=== PATIENT | female | born 1930 | race Caucasian/White ===

== ENCOUNTER 2016-10-13 12:10 | Inpatient (IN) ==
[2016-10-13] MEDS ORDERED: ASPIRIN PO ONE (12:28)
--- NOTE | 2016-10-13 12:30 | EKG Report ---
Test Performed on : 10/13/2016 12:29:34 PM Test Reason : CHANGE Blood Pressure : / mmHG Vent. Rate : 142 BPM Atrial Rate : 094 BPM P-R Int : 000 ms QRS Dur : 100 ms QT Int : 322 ms P-R-T Axes : 000 -65 133 degrees QTc Int : 495 ms Supraventricular tachycardia. Left axis deviation Nonspecific ST and T wave abnormality Abnormal ECG No previous ECGs available Unconfirmed Result
[2016-10-13] MEDS ORDERED: CARDIZEM IV ONE (12:32)
[2016-10-13 12:42] LABS: MANUAL DIFF NEEDED? NO
[2016-10-13 12:47] LABS: BASO% 0.6 % (0.0-0.8); EOS# 0.02 X1000 (0.0-0.7); EOS% 0.3 % (0.0-10.0); HEMATOCRIT 41.2 % (37.0-47.0); HEMOGLOBIN 13.5 g/dL (12.0-16.0); IMM GRAN# 0.01 X1000 (0.0-0.04); IMM GRAN% 0.1 % (0.0-0.5); LYMPH# 1.44 X1000 (1.2-3.4); LYMPH% 18.4 % (20.5-51.1); MCH 30.7 PG (27-31); MCHC 32.8 g/dL (33-37); MCV 93.6 FL (81-99); MONO# 0.65 X1000 (0.11-0.59); MONO% 8.3 % (1.7-9.3); MPV 9.9 FL (7.4-10.4); NEUT% 72.3 % (42.2-75.2); PLT 215 X1000 (130-400)
[2016-10-13 12:59] LABS: PROTIME 13.5 Seconds (12.1-15.5)
[2016-10-13 13:06] LABS: AGAP 16; ALBUMIN 4.2 g/dL (3.5-5.0); ALKALINE PHOSPHATASE 34 U/L (32-104); BUN 14 mg/dL (8-22); CALCIUM 8.7 mg/dL (8.8-10.2); CHLORIDE 103 mmol/L (98-107); COSMO 280; GOT 48 U/L (10-30); GPT 55 U/L (10-36); POTASSIUM 3.9 mmol/L (3.5-5.1); SODIUM 140 mmol/L (136-145); TCO2 21 mmol/L (25-35); TOTAL PROTEIN 6.8 g/dL (6.3-8.3)
--- NOTE | 2016-10-13 13:37 | Diag Imaging Result Document ---
PROCEDURE NAME: CHEST-2 VIEWS - 10/13/2016 TWO VIEWS THE CHEST: FINDINGS: There is accentuated kyphosis. There is a calcified granuloma in the right middle lobe. The heart size is at the upper limits of normal. There is an apparent hiatal hernia. No acute pulmonary abnormalities are present. There are no previous studies. IMPRESSION: No evidence of acute disease. Top-normal heart size. Hiatal hernia.
--- NOTE | 2016-10-13 14:27 | Diag Imaging Result Document ---
PROCEDURE NAME: ANGIOGRAM/PULMONARY ARTERIES - 10/13/2016 CT OF THE CHEST WITH INTRAVENOUS CONTRAST: FINDINGS: There is at least one small filling defect in each of the left upper and lower lobes. No central emboli are demonstrated. There is patchy air trapping in both lungs. No focal consolidation is present. No abnormal fluid collections are present. There are some coronary calcifications. There is no evidence of significant adenopathy. No acute bony abnormalities are present. IMPRESSION: Small peripheral emboli in the left upper and lower lobes.
[2016-10-13] MEDS ORDERED: LOVENOX 1 MG/KG SUBQ ONE (14:30)
[2016-10-13] MEDS ORDERED: NS 1,000 ML ONE (14:36)
[2016-10-13] MEDS ORDERED: LOVENOX SUBQ ONE (14:45)
[2016-10-13] MEDS: CARDIZEM 100 MG/NS 100 MG/100 ML IVPB IV SCH (14:45)
--- NOTE | 2016-10-13 14:59 | PROVIDER DOCUMENTATION ---
This chart was entered by Dashawn Bradley Scribe, acting as scribe for Brian Loyola MD. HPI-Cardiac General - General Chief Complaint: Palpitations Stated Complaint: CHEST PAIN Time Seen by Provider: 10/13/16 12:28 Source: patient Allergies/Adverse Reactions: Patient Allergies Allergy/AdvReac Type Severity Reaction Status Date / Time codeine AdvReac HIVES Verified 10/13/16 12:19 Home Medications: Home Medication List Medication Instructions Recorded Confirmed Last Taken Type Acyclovir [Acyclovir] 400 mg PO DAILY 10/13/16 10/13/16 Unknown History Clopidogrel Bisulfate [Clopidogrel] 75 mg PO DAILY 10/13/16 10/13/16 Unknown History Ezetimibe [Zetia] 10 mg PO DAILY 10/13/16 10/13/16 Unknown History Fenofibrate [Fenofibrate] 160 mg PO DAILY 10/13/16 10/13/16 Unknown History Metoprolol Succinate [Metoprolol 25 mg PO DAILY 10/13/16 10/13/16 Unknown History Succinate] Simvastatin [Simvastatin] 40 mg PO DAILY 10/13/16 10/13/16 Unknown History - History of Present Illness-Cardiac Nature of Presenting Problem: 86 yo F presents to the ER with complaint of of racing heart and back pain x 1 week. Pt states she thought the racing heart would go away, but it did not. Pt saw her doctor earlier today and was told to come to the ER. Pt has no hx of similar symptoms. Location: reports: central Severity in ED: mild Onset/Duration: 1 week ago Timing: still present Palpitation Quality: fast/pounding heart beat History of arrythmia: reports: none Recent use of:: reports: no stimulants Associated Symptoms: reports: back pain Similar Symptoms Previously?: No Review of Systems - Adult - REVIEW OF SYSTEMS - ADULT Constitutional: denies: chills, fever Cardiovascular: reports: palpitations. denies: chest pain, irregular heart rate Respiratory: reports: shortness of breath. denies: cough Gastrointestinal: denies: abdominal pain, nausea, vomiting Musculoskeletal: reports: back pain. denies: neck pain All Other Systems: Reviewed and Negative Past History - Adult - PAST MEDICAL HISTORY-ADULT Review of Records: reports: Old Records Reviewed, Nursing Assessment Review, Medications Reviewed - IMMUNIZATION STATUS Childhood Immunizations: See Nurse Assessment Flu Vaccine: See Nurse Assessment Physical Exam-General - PHYSICAL EXAM-ADULT Initial Vital Signs Reviewed: Yes - CONSTITUTIONAL General Appearance: appears well, alert, no apparent distress - NECK Neck: non-tender, full range of motion, supple - RESPIRATORY Respiratory: chest non-tender, lungs clear, normal breath sounds - CARDIOVASCULAR Cardiovascular: tachycardia - MUSCULOSKELETAL Extremity: normal range of motion, non-tender, normal gait - SKIN Integumentary: normal color, normal turgor Progress - PLAN OF CARE/RESULTS Progress/Plan/Lab Results: Vital Signs - 8 hr 10/13/16 12:14 Temperature 98 F Pulse Rate 125 H Respiratory Rate 20 Blood Pressure 139/90 O2 Sat by Pulse Oximetry 99 Laboratory Results - last 24 hr 10/13/16 10/13/16 10/13/16 12:35 12:35 12:35 WBC 7.81 RBC 4.40 Hgb 13.5 Hct 41.2 MCV 93.6 MCH 30.7 MCHC 32.8 L RDW Std Deviation 13.5 Plt Count 215 MPV 9.9 Immature Gran % (Auto) 0.1 Neut % (Auto) 72.3 Lymph % (Auto) 18.4 L [place] % (Auto) 8.3 Eos % (Auto) 0.3 Baso % (Auto) 0.6 Immature Gran # (Auto) 0.01 Neut # (Auto) 5.64 Lymph # (Auto) 1.44 [place] # (Auto) 0.65 H Eos # (Auto) 0.02 Baso # (Auto) 0.05 PT INR D-Dimer Sodium 140 Potassium 3.9 Chloride 103 Carbon Dioxide 21 L Anion Gap 16 BUN 14 Creatinine 0.6 Estimated GFR/1.73 m2 > 60 BUN/Creatinine Ratio 23 Glucose 99 Calculated Osmolality 280 Calcium 8.7 L Total Bilirubin 0.20 AST 48 H ALT 55 H Alkaline Phosphatase 34 Creatine Kinase Troponin T Pcb-A-[id number] Pept 2900 H Total Protein 6.8 Albumin 4.2 Globulin 3.0 Albumin/Globulin Ratio 2.0 10/13/16 10/13/16 10/13/16 12:35 12:35 12:35 WBC RBC Hgb Hct MCV MCH MCHC RDW Std Deviation Plt Count MPV Immature Gran % (Auto) Neut % (Auto) Lymph % (Auto) [place] % (Auto) Eos % (Auto) Baso % (Auto) Immature Gran # (Auto) Neut # (Auto) Lymph # (Auto) [place] # (Auto) Eos # (Auto) Baso # (Auto) PT 13.5 INR 1.00 D-Dimer 0.60 H Sodium Potassium Chloride Carbon Dioxide Anion Gap BUN Creatinine Estimated GFR/1.73 m2 BUN/Creatinine Ratio Glucose Calculated Osmolality Calcium Total Bilirubin AST ALT Alkaline Phosphatase Creatine Kinase 115 Troponin T < 0.010 Afe-D-Lnhxfskzshi Pept Total Protein Albumin Globulin Albumin/Globulin Ratio Orders Category Date Time Status Cardiac Monitoring DIRECTED Care 10/13/16 12:26 Active IV Insertion ORDERED Care 10/13/16 12:32 Completed ANGIOGRAM/PULMONARY ARTERIES [CT] Stat Exams 10/13/16 13:17 Draft CHEST-2 VIEWS [RAD] Stat Exams 10/13/16 12:26 Completed CBC WITH DIFF [HEME] Stat Lab 10/13/16 12:35 Completed CK PROFILE [SP CHEM] Stat Lab 10/13/16 12:35 Completed COMPREHENSIVE METABOLIC PANEL [CHEM] Stat Lab 10/13/16 12:[address] Com[address] D-DIMER PL [COAG] Stat Lab 10/13/16 12:35 Completed PRO B-NATRIURETIC PEPTIDE Stat Lab 10/13/16 12:35 Completed PROTIME WITH INR PL [COAG] Stat Lab 10/13/16 12:35 Completed TROPONIN T Stat Lab 10/13/16 12:35 Completed 0.9% Sodium Chloride Inj [Ns] 1,000 ml Med 10/13/16 14:36 Discontinued .ROUTE As Directed Aspirin Med 10/13/16 12:28 Discontinued 325 mg PO NOW ONE Diltiazem 100 mg/Ns [Cardizem 100 mg/Ns] Med 10/13/16 14:30 Active 100 mg in 100 ml IV 5 mg/hr Diltiazem [Cardizem] Med 10/13/16 12:32 Discontinued 10 mg IV NOW ONE Enoxaparin 1 mg/kg [Lovenox 1 mg/kg] Med 10/13/16 14:30 Discontinued 1 each SUBQ NOW ONE Enoxaparin [Lovenox] Med 10/13/16 14:45 Discontinued 70 mg SUBQ NOW ONE O2 Per Protocol Stat Oth 10/13/16 12:26 Active Result Diagrams: 10/13/16 12:35 10/13/16 12:35 - EKG 1 Time of EKG reading by physician:: 12:34 EKG Read and Signed by:: Brian Loyola EKG Interpretation (*Must complete 3 of following elements*): Abnormal Rate: 142 Rhythm: supraventricular tachycardia [place]: left QRS: normal [place] Interval: normal ST Wave: non-specific ST changes (non specific wave abnormality) Comments: abnormal ekg 2 Time of EKG reading by physician:: 13:28 EKG Read and Signed by:: Brian Loyola EKG Interpretation (*Must complete 3 of following elements*): Abnormal Rate: 71 Rhythm: NSR [place]: normal QRS: normal [place] Interval: normal ST Wave: non-specific ST changes (ST and T wave abnormality, consider anterior ischemia) Comments: abnormal ekg - XRAY 1 XRAY Study: Chest Impression: Normal XRAY Interpretation: no evidence of acute disease - CT/MRI 1 CT Study: Angiogram Impression: Abnormal CT Results: small pe; JADA and LLL - CONSULTS/PCP/HOSPITALIST Notification #1 *Consult/PCP/Hospitalist*: Hospitalist- Dr. Dejesus Time Discussed: 14:28 Reason/Comments: poss admit Consult Disposition: Admit (to [facility]- Dr. Paulson) Departure - Departure Time of Disposition Decision: 14:49 DIAGNOSIS: Pulmonary embolism Qualifiers: Pulmonary embolism type: other Chronicity: unspecified Acute cor pulmonale presence: without acute cor pulmonale Qualified Code(s): I26.99 - Other pulmonary embolism without acute cor pulmonale Disposition: ADMITTED INPATIENT 09 Certified Medical Emergency: Emergent Condition: Stable Referrals and Follow-Ups: Ida Nieto MD [Primary Care Provider] - - Critical Care Note This patient required my direct & personal management of CC.: No This chart was documented by the indicated scribe, (Dashawn Bradley Scribe) and accurately reflects the services I performed and decisions made by , Brian Loyola MD, as attested by the provider's signature.
--- NOTE | 2016-10-13 16:06 | EKG Report ---
Test Performed on : 10/13/2016 3:04:25 PM Test Reason : IRREG HR Blood Pressure : / mmHG Vent. Rate : 140 BPM Atrial Rate : 068 BPM P-R Int : 000 ms QRS Dur : 088 ms QT Int : 294 ms P-R-T Axes : 000 -62 135 degrees QTc Int : 448 ms Supraventricular tachycardia. Left axis deviation Nonspecific ST and T wave abnormality Abnormal ECG No previous ECGs available Unconfirmed Result
[2016-10-13] MEDS ORDERED: TYLENOL PO PRN (17:02)
[2016-10-13] MEDS ORDERED: ZOFRAN IV PRN (17:02)
--- NOTE | 2016-10-13 18:24 | HISTORY AND PHYSICAL ---
PRIMARY CARE PHYSICIAN: Dr. López. CHIEF COMPLAINT: Racing heart and some back pain over the past week that has progressively worsened. HISTORY OF PRESENTING ILLNESS: This is an 86-year-old, female who came to [facility] ER after she saw her primary care physician today and was told to come to the ER after she was found to have a racing heart and back pain for the past week. When she arrived to the emergency room, she was noted to have a heart rate of 125. EKG initially showed SVT. Laboratory data showed a D-dimer of 0.6, with a proBNP of 2900. We did a pulmonary arteriogram that showed a small peripheral emboli in the left upper and lower lobes. She was given Cardizem 10 mg IV x1 in the emergency room and aspirin 325 mg x1 and Lovenox 1 mg/kg subcu x1 in the emergency room her heart rate did not change much and upon looking at her teletypesetter monitor, it appeared that her rhythm has changed, so we obtained another EKG that showed atrial fibrillation with RVR at 105 at that time, so, she is being started on a Cardizem drip. O2 is in place and she will be transferred to [facility] for further evaluation and treatment. PAST MEDICAL HISTORY: Hypercholesterolemia, GERD and chronic back pain. PAST SURGICAL HISTORY: Left eye surgery. FAMILY HISTORY: Noncontributory. SOCIAL HISTORY: She currently lives alone. Denies any tobacco, alcohol, or illicit drug use. ALLERGIES: Codeine. HOME MEDICATIONS: She takes acyclovir 400 mg p.o. daily. Plavix 75 mg p.o. daily. Zetia 10 mg p.o. daily, fenofibrate 160 p.o. daily. Metoprolol 25 mg p.o. daily and simvastatin 40 mg p.o. daily. LABORATORY DATA: Showed a white blood cell count of 7.8, hemoglobin 13.5, hematocrit 41.2, platelets 215. PT and INR of 13.5 and 1.00 with a D-dimer of 0.60. Sodium of 140, potassium 3.9, chloride 103, CO2 of 21, BUN of 14, creatinine 0.6, glucose of 99. AST of 48 with an ALT of 55. Alkaline phosphatase was normal at 34. Creatine kinase of 115, troponin less than 0.010. ProBNP of 2900. Chest x-ray showed no evidence of an acute disease. EKG on arrival showed SVT at 142. Repeat EKG showed atrial fibrillation with RVR at 105. Pulmonary arteriogram showed small peripheral emboli in the left upper and lower lobes. REVIEW OF SYSTEMS: She denied any fever, chills, blurred vision, dizziness. She denied chest pain, but she was positive for palpitations and some back pain. Denied any shortness of breath. Denied any constipation, diarrhea, abdominal pain, nausea, vomiting, or burning or hurting with urination. PHYSICAL EXAMINATION: VITAL SIGNS: On arrival, she had a temperature of 98, a pulse of 125, respirations 20, blood pressure 139/90, saturating 99% on room air. She was placed on some supplemental O2, and is now saturating 99-100% on 2 L. GENERAL: This is an 86-year-old, female, lying in the bed, and answers questions appropriately. HEENT: Normocephalic, atraumatic. Pupils are equal, round and reactive to light. The extraocular movements are intact. The oropharynx and nares are clear. NECK: Supple. LUNGS: Clear to auscultation bilaterally with equal lung expansion and chest wall movement. HEART: With regular rate and rhythm. No murmurs, rubs, or gallops. ABDOMEN: Soft, nontender, nondistended. Bowel sounds are present x4 quadrants. EXTREMITIES: No clubbing, cyanosis or edema. NEUROLOGICAL: The cranial nerves 2-12 are grossly intact. ASSESSMENT: 1. Left upper and left lower lobe pulmonary emboli. 2. Supraventricular tachycardia. 3. Atrial fibrillation with rapid ventricular response. 4. Hypertension. PLAN: She will be admitted to [facility] unit. Placed on telemetry. Healthy heart diet. We will consult Cardiology. We will do a hypercoagulable workup. Place on Lovenox 1 mg/kg subcutaneous q.12. Continue her home medications. Strict bed rest. The patient will need an echocardiogram, but will hold off ordering this until cardiology sees her and she converts back to normal sinus rhythm in order to get some good pictures of her heart. All admission orders have been discussed with the patient and family and they verbalized understanding. Does not have a living will and is a full code. Dictated by AVTAR Mckeon for Rai Baig MD cc: AVTAR Mckeon MD Thomas E. Lockard, DO MTDD
[2016-10-13] MEDS: PROTONIX IV SCH (20:59)
[2016-10-13] MEDS ORDERED: KLONOPIN PO PRN (21:52)
[2016-10-13] MEDS ORDERED: ANTIVERT PO PRN (21:52)
[2016-10-13] MEDS: ZOCOR PO SCH (22:40)
[2016-10-13] MEDS: ULTRAM PO PRN (22:40)
[2016-10-13] MEDS: ZOVIRAX PO SCH (22:41)
[2016-10-14] MEDS ORDERED: LOVENOX SUBQ SCH (03:00)
[2016-10-14] MEDS: CARDIZEM 100 MG/NS 100 MG/100 ML IVPB IV SCH ×2 (03:57→12:16)
--- NOTE | 2016-10-14 04:14 | EKG Report ---
Test Performed on : 10/13/2016 1:28:13 PM Test Reason : rhythm change Blood Pressure : / mmHG Vent. Rate : 071 BPM Atrial Rate : 071 BPM P-R Int : 188 ms QRS Dur : 090 ms QT Int : 390 ms P-R-T Axes : 071 -16 084 degrees QTc Int : 423 ms Normal sinus rhythm. ST \T\ T wave abnormality, consider anterior ischemia Abnormal ECG When compared with ECG of 13-OCT-2016 12:29, (Unconfirmed) Vent. rate has decreased BY 71 BPM Nonspecific T wave abnormality now evident in Inferior leads Unconfirmed Result
[2016-10-14 05:36] LABS: MANUAL DIFF NEEDED? NO
[2016-10-14 05:42] LABS: BASO% 1.2 % (0.0-0.8); EOS# 0.03 X1000 (0.0-0.7); EOS% 0.6 % (0.0-10.0); HEMATOCRIT 37.8 % (37.0-47.0); HEMOGLOBIN 12.5 g/dL (12.0-16.0); LYMPH# 1.23 X1000 (1.2-3.4); LYMPH% 24.9 % (20.5-51.1); MCH 31.3 PG (27-31); MCHC 33.1 g/dL (33-37); MCV 94.5 FL (81-99); MONO# 0.49 X1000 (0.11-0.59); MONO% 9.9 % (1.7-9.3); MPV 9.9 FL (7.4-10.4); NEUT% 63.4 % (42.2-75.2); PLT 188 X1000 (130-400)
[2016-10-14 06:00] LABS: AGAP 10; ALBUMIN 3.6 g/dL (3.5-5.0); ALKALINE PHOSPHATASE 27 U/L (32-104); BUN 12 mg/dL (8-22); CALCIUM 8.1 mg/dL (8.8-10.2); CHLORIDE 109 mmol/L (98-107); COSMO 283; GOT 34 U/L (10-30); GPT 42 U/L (10-36); POTASSIUM 3.8 mmol/L (3.5-5.1); SODIUM 142 mmol/L (136-145); TCO2 23 mmol/L (25-35); TOTAL PROTEIN 5.9 g/dL (6.3-8.3)
[2016-10-14] MEDS: ZOVIRAX PO SCH ×2 (08:30→19:54)
[2016-10-14] MEDS: ZETIA PO SCH (08:31)
[2016-10-14] MEDS: LOFIBRA PO SCH (08:31)
[2016-10-14] MEDS ORDERED: ZOCOR PO SCH (09:00)
[2016-10-14] MEDS ORDERED: TOPROL XL PO SCH (09:00)
[2016-10-14] MEDS ORDERED: ZOVIRAX PO SCH (09:00)
[2016-10-14] MEDS ORDERED: PLAVIX PO SCH (09:00)
--- NOTE | 2016-10-14 11:04 | CONSULTATION ---
DATE OF CONSULTATION: 10/14/2016 IMPRESSION: 1. Atrial flutter with rapid ventricular rate of at least several days' duration by history with associated tachy palpitations. 2. Right posterior back discomfort. 3. Small distal pulmonary emboli reported on chest CT angiography, reportedly in the left upper and left lower lobes. 4. Atherosclerotic carotid disease. 5. Hyperlipidemia. 6. Scoliosis with associated chronic back discomfort. 7. Gastroesophageal reflux disease. RECOMMENDATIONS: 1. Continue intravenous Cardizem until heart rate adequately controlled. 2. Augment beta-estelita to facilitate getting off intravenous Cardizem and controlling heart rate. 3. Anticoagulation. Would transition to Eliquis and not resume Plavix. 4. Followup echocardiography. 5. If unable to achieve rate control without intravenous Cardizem, as beta-estelita is increased will consider going forward with NORM cardioversion. 6. The rationale for anticoagulation for thromboembolic risk protection and the possible need for NORM cardioversion was discussed at length with the patient and her daughter. HISTORY: This 86-year-old white female with past history of hyperlipidemia, atherosclerotic carotid disease, and gastroesophageal reflux as well as chronic back discomfort related to scoliosis was admitted through the emergency room for further management of SVT that ultimately has proven to be atrial flutter. She relates recent problems with right posterior chest discomfort for the last 4 days or so. She has had some tachy palpitations. There has been no other chest discomfort. Her right posterior discomfort is described as a "hurting to the bone." She is not convinced that it is worse with deep breath or cough. There has been no dyspnea. She has not had any recent travel. There has been no lower extremity swelling. PAST MEDICAL HISTORY: 1. Atherosclerotic carotid disease for which patient was started on Plavix. 2. Hyperlipidemia. 3. Gastroesophageal reflux. 4. Chronic back pain which is reportedly due to scoliosis. 5. 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 6. She is allergic or intolerant to codeine. MEDICATIONS PRIOR TO ADMISSION: As listed. SOCIAL HISTORY: She is a . She does not smoke or use alcohol. FAMILY HISTORY: Negative for premature coronary artery disease. REVIEW OF SYSTEMS: Pulmonary: Negative. Gastrointestinal: With gastroesophageal reflux but otherwise negative. Constitutional: Negative. Remainder of review of systems negative/noncontributory with 14 total systems reviewed. PHYSICAL EXAMINATION: General: Pleasant elderly female in no distress. Vital signs: As recorded are stable. HEENT: Extraocular movements appear intact. Mucous membranes are moist. Neck: Supple without jugular venous distention. There are no carotid bruits. Chest: Clear to auscultation. Cardiac: Exam reveals an irregular rate and rhythm without appreciable murmur or gallop. Abdomen: Soft, nontender. Bowel sounds are normal. Extremities: Without edema. Neurologic: Exam reveals her to be alert and fully oriented. Speech is fluent. She moves all 4 extremities equally well. Skin: Warm and dry. Psychiatric: Exam reveals her mood to be appropriate. EKG: Initial EKG demonstrates supraventricular tachycardia at 144 beats per minute, left anterior fascicular block, and nonspecific ST-T abnormality. Followup ECG: Heart rate is controlled, discloses atrial flutter with variable rate response. cc: David Padilla MD
[2016-10-14] MEDS ORDERED: MIRALAX PO ONE (11:29)
--- NOTE | 2016-10-14 14:29 | PROGRESS NOTE ---
DATE: 10/14/2016 SUBJECTIVE: Patient has no focal complaints. OBJECTIVE: Blood pressure 115/61, heart rate of 84, respiratory rate 18, temperature 97.9 degrees, 100% on 2 L.Cardiovascular: Regular rate and rhythm. Pulmonary: Bilateral breath sounds. Clear to auscultation. GI: Soft, nontender, nondistended. Bowel sounds are positive. LABORATORY DATA: White count of 4, hemoglobin and hematocrit 12 and 37, platelets of 188,000. CMP looked okay. AST and ALT are mildly elevated at 34 and 42. PROBLEM LIST: 1. PE, very small PE. She is getting a hypercoagulable workup. Clinically she appears very stable. She has been very stable so I am going to transition her to [facility] and we will follow. 2. A-flutter with variable block and RVR. She is on Cardizem and Lopressor. Dr. Padilla has been consulted. Echo is pending. Plan for NORM with cardioversion on Monday if she does not cardiovert on her own. We will continue to monitor closely. 3. Disposition pending her clinical course. 4. Elevated liver enzymes. I will monitor and do hepatitis screen. cc: Andrew Bear MD
--- NOTE | 2016-10-14 16:16 | ECHO REPORT ---
ORDER DATE: 10/14/2016 ECHOCARDIOGRAPHIC MEASUREMENTS: 1. Interventricular septum 1.4 2. Left ventricular posterior wall 1.5 cm. 3. Diastolic diameter 4.9. 4. Left atrium 4.7. 5. Aorta 2.7. FINDINGS: 1. Aortic valve leaflets were trileaflet, mildly sclerosed, opening normally. 2. Pulmonic valve was normal. 3. Tricuspid valve was normal. 4. Mitral valve was normal. 5. There is left atrial enlargement. 6. Normal left ventricular cavity size, mild left ventricular hypertrophy. Estimated ejection fraction of 65%. 7. Doppler studies revealed mild mitral regurgitation, mild tricuspid regurgitation. Peak velocity across the tricuspid valve was 2.7 meters/second. Pulmonary artery systolic pressure 40 mmHg Peak. 8. Peak velocity across the aortic valve less than 2 meters/second by Doppler studies. There is no aortic stenosis. There is mild aortic regurgitation. 9. Thee is no pericardial effusion or obvious intracardiac mass or thrombus. cc: MD Andrew Perez MD
--- NOTE | 2016-10-14 17:22 | Extremity Venous Study ---
PROCEDURE NAME: Venous U/S Bilateral Legs - 10/14/2016 STUDY PERFORMED: Bilateral lower extremity venous ultrasound. INDICATIONS: Pulmonary embolus. HISTOLOGY TECHNICIAN: Raiza FINDINGS: All deep and superficial veins were visualized in bilateral lower extremities. All veins appeared compressible with forward flow and no obvious intraluminal thrombus. There was some reflux noted with Valsalva in the right popliteal vein. SUMMARY: No definitive deep or superficial venous thrombosis seen in the bilateral lower extremities on this exam. cc: MD Andrew Long MD
[2016-10-14] MEDS: ELIQUIS PO SCH (19:52)
[2016-10-14] MEDS: ZOCOR PO SCH (19:53)
[2016-10-14] MEDS: LOPRESSOR PO SCH (19:53)
[2016-10-14] MEDS: ULTRAM PO PRN (19:53)
[2016-10-14] MEDS: PROTONIX IV SCH (19:55)
[2016-10-14] MEDS: SODIUM CHLORIDE 0.9% INJ SCH (19:55)
[2016-10-15] MEDS: LOPRESSOR PO SCH ×3 (02:23→21:36)
[2016-10-15] MEDS: ZOCOR PO SCH (02:23)
[2016-10-15] MEDS: ZOVIRAX PO SCH ×3 (02:24→21:36)
[2016-10-15] MEDS: ELIQUIS PO SCH ×3 (02:24→21:35)
[2016-10-15] MEDS: PROTONIX IV SCH ×2 (02:24→21:35)
[2016-10-15] MEDS: ULTRAM PO PRN ×2 (04:45→09:36)
[2016-10-15] MEDS: CARDIZEM 100 MG/NS 100 MG/100 ML IVPB IV SCH ×3 (04:50→18:49)
[2016-10-15 08:31] LABS: HEMATOCRIT 39.2 % (37.0-47.0); HEMOGLOBIN 13.1 g/dL (12.0-16.0); MCH 31.5 PG (27-31); MCHC 33.4 g/dL (33-37); MCV 94.2 FL (81-99); RBC 4.16 XMIL (4.2-5.4)
[2016-10-15] MEDS: MIRALAX PO SCH (08:42)
[2016-10-15] MEDS: LOFIBRA PO SCH (08:44)
[2016-10-15] MEDS: ZETIA PO SCH (08:44)
[2016-10-15 09:08] LABS: AGAP 10; ALBUMIN 3.9 g/dL (3.5-5.0); ALKALINE PHOSPHATASE 30 U/L (32-104); BUN 10 mg/dL (8-22); CALCIUM 8.7 mg/dL (8.8-10.2); CHLORIDE 109 mmol/L (98-107); COSMO 282; DIRECT BILIRUBIN < 0.20 mg/dL (0.00-0.20); GOT 34 U/L (10-30); GPT 42 U/L (10-36); MAGNESIUM 2.1 mg/dL (1.5-2.7); POTASSIUM 4.2 mmol/L (3.5-5.1); SODIUM 142 mmol/L (136-145); TCO2 23 mmol/L (25-35); TOTAL BILIRUBIN 0.36 mg/dL (0.20-1.00); TOTAL PROTEIN 6.3 g/dL (6.3-8.3)
--- NOTE | 2016-10-15 10:52 | PROGRESS NOTE ---
DATE: 10/15/2016 CHIEF COMPLAINT: Back pain, irregular heartbeat and shortness of breath. SUBJECTIVE: Ms. Loza is still having some back pain. It is not as bad, seems to get better when she is sitting upright and pushing her buttocks back against the bed. It is nonpleuritic. It does not seem to get worse by touch. Her palpitations appear to have lessened some. She is still in atrial fibrillation, and the rate is still fluctuating with a maximum that reaches 115. OBJECTIVE: Blood pressure today is 125/74, temperature 97.8, pulse 99, respirations 17. She is awake, elderly, in no distress. HEENT: Unremarkable. Chest: Fairly clear to auscultation and percussion. Heart sounds are irregularly irregular. I do not hear a gallop or murmur. Abdomen: Nontender, soft. No masses. No hepatomegaly. Extremities showed good pulses. No peripheral edema. Neurologic: She follows commands and moves all 4 extremities. DIAGNOSTIC DATA: Blood work today showed sodium 142, potassium 4.2, BUN is 10, creatinine 0.7. Her ProBNP was 2900 on admission. Hemoglobin today is 13.1. IMPRESSION: 1. The patient is with atrial fibrillation with rapid response. 2. Small pulmonary embolism noted on a CT scan of the chest. Of note, a venous ultrasound has shown no evidence of clots. In addition, a 2D echocardiogram done on 10/14/2016 showed normal left ventricular ejection fraction. 3. Hyperlipidemia. 4. History of chronic back pain, scoliosis. 5. History of bilateral knee osteoarthritis. 6. She also has history of carotid artery disease. RECOMMENDATIONS: At this point in time, given her normal ejection fraction, I will add a low dose of diltiazem, and we will also add some digoxin to optimize the control of her heart rate. She is already on beta blockers. I would continue anticoagulation as you are doing. The daughter was concerned about the multiple drugs that she is taking for management of her hyperlipidemia, and I agree with her that it would be reasonable to stop Zocor, fenofibrate and Zetia and put her on Lipitor 80 mg daily and see what kind of lipid profile can be accomplished that way and then add medications as needed thereafter. We will make the changes. We will follow her along. Thank you for the opportunity to participate in her evaluation. Best regards. cc: Ilir Calvillo MD
[2016-10-15] MEDS: LANOXIN PO SCH ×3 (12:44→22:00)
--- NOTE | 2016-10-15 13:18 | PROGRESS NOTE ---
DATE: 10/15/2016 SUBJECTIVE: Patient has no focal complaints except for back pain. OBJECTIVE: Blood pressure 108/84, heart rate of 101, respiratory rate 20, temperature 98.2 degrees, 100% on 2 L.Cardiovascular: Irregularly irregular. Pulmonary: Bilateral breath sounds. Diminished at bases. GI: Was soft, nontender, nondistended. Bowel sounds are positive. Extremities: No clubbing or cyanosis. Lymphatics: No peripheral edema. LABORATORY DATA: CBC unremarkable. Normal white count. Normal H and H. Electrolytes looked good. Potassium 4.2, mag 2.1. Creatinine 0.7, AST and ALT are still up a little bit of 34 and 42, kind of monitor those. PROBLEM LIST: 1. Atrial fibrillation or A-flutter with rapid ventricular response. We have not been able to wean her off the Cardizem drip. She had gone up on the Lopressor yesterday. Dr. Calvillo has seen her and added digoxin load. Hopefully that will aid in converting. She is anticoagulated now. I have switched her to Eliquis which I will discuss with Dr. Calvillo. We may have to put her back on Lovenox if we anticipate NORM. I just do not want that to interfere with possible NORM on Monday. 2. PE. She is being anticoagulated. DVT workup was negative by report, a preliminary report. Hypercoagulable workup is pending. 3. Elevated liver enzymes. I think next step will be a right upper quadrant although she is not symptomatic. Disposition: I am still waiting on the final resolution of her A-flutter, A-fib. We will continue to follow. cc: Andrew Bear MD
[2016-10-15] MEDS: CARDIZEM PO SCH ×2 (14:45→21:35)
[2016-10-15] MEDS ORDERED: DULCOLAX PO ONE (21:25)
[2016-10-15] MEDS: SODIUM CHLORIDE 0.9% INJ SCH (21:35)
[2016-10-15] MEDS: LIPITOR PO SCH (21:36)
[2016-10-15] MEDS ORDERED: DULCOLAX PR ONE (21:54)
[2016-10-16] MEDS: LANOXIN PO SCH ×2 (01:23→08:13)
[2016-10-16] MEDS: CARDIZEM PO SCH ×4 (03:58→20:27)
[2016-10-16] MEDS: NORCO-5 PO PRN ×3 (03:58→20:36)
[2016-10-16] MEDS: ZOFRAN IV PRN (04:12)
[2016-10-16 05:21] LABS: HEMATOCRIT 37.7 % (37.0-47.0); HEMOGLOBIN 12.5 g/dL (12.0-16.0); MCH 31.6 PG (27-31); MCHC 33.2 g/dL (33-37); MCV 95.4 FL (81-99); MPV 9.8 FL (7.4-10.4); RBC 3.95 XMIL (4.2-5.4)
[2016-10-16 05:40] LABS: AGAP 12; BUN 14 mg/dL (8-22); CALCIUM 8.9 mg/dL (8.8-10.2); CHLORIDE 104 mmol/L (98-107); COSMO 284; POTASSIUM 4.1 mmol/L (3.5-5.1); SODIUM 142 mmol/L (136-145); TCO2 26 mmol/L (25-35)
[2016-10-16] MEDS: LOPRESSOR PO SCH ×2 (08:13→20:27)
[2016-10-16] MEDS: ELIQUIS PO SCH ×2 (08:13→20:27)
[2016-10-16] MEDS: MIRALAX PO SCH ×2 (08:13→20:26)
[2016-10-16] MEDS: ZOVIRAX PO SCH ×2 (08:13→20:27)
[2016-10-16] MEDS: CARDIZEM 100 MG/NS 100 MG/100 ML IVPB IV SCH (09:14)
--- NOTE | 2016-10-16 14:35 | PROGRESS NOTE ---
DATE: 10/16/2016 CHIEF COMPLAINT: Palpitations, shortness of breath, back pain, irregular heartbeat. SUBJECTIVE: Ms. Loza is feeling better today. Her heart rate is much better controlled. She is not having any palpitations. She does have some pain in the right side of her back, to the right side of the spine. It is nonpleuritic. OBJECTIVE: Blood pressure is 105/51, temperature 98.4, pulse 65, respirations 20. She is awake, alert, oriented, in no distress. HEENT is unremarkable. Chest: Clear to auscultation and percussion. Heart sounds are almost regular at this time. No gallop or murmur is noted. Abdomen: Nontender, soft. No masses or hepatomegaly. Extremities showed good pulses, no edema. Neurologic: She moves all 4 extremities. DIAGNOSTIC DATA: A 12-lead EKG done today shows what appears to be a junctional rhythm with a good heart rate of 65 beats per minute. IMPRESSION: 1. The patient presented with paroxysmal atrial fibrillation. This is better controlled on present therapy. 2. Hyperlipidemia. 3. Chronic back pain. 4. History of pulmonary embolism. 5. History of arthritis of the knees. RECOMMENDATIONS: At this point in time, we will continue present medicines as ordered including a low dose of digoxin, diltiazem and metoprolol. We will continue to follow her. She may proceed with cardioversion in the morning. Further advice will be forthcoming. cc: Ilir Calvillo MD
--- NOTE | 2016-10-16 16:43 | PROGRESS NOTE ---
DATE: 10/16/2016 SUBJECTIVE: Patient has no focal complaints. OBJECTIVE: Vital signs: Blood pressure 105/51, heart rate 65, respiratory rate 20, temperature 98.4 degrees. 98% on 2 L. Cardiovascular: Regular rate and rhythm. Pulmonary: Bilateral breath sounds, clear to auscultation. GI: Soft, nontender, nondistended. Bowel sounds are positive. LABORATORY DATA: White count 6.6, hemoglobin and hematocrit 12 and 37, platelets 198,000. Basic was normal. PROBLEM LIST: 1. A-flutter with rapid ventricular response. She is on digitalis, Cardizem and Lopressor and controlled. She is anticoagulated. Cardiology is following. 2. Small pulmonary emboli. Again. We are continuing anticoagulation. 3. Elevated liver enzymes. We will follow up on her ultrasound and follow. DISPOSITION: Possibly home tomorrow if rate controlled. cc: Andrew Bear MD
--- NOTE | 2016-10-16 18:31 | Diag Imaging Result Document ---
PROCEDURE NAME: US ABDOMEN-COMPLETE - 10/16/2016 ULTRASOUND ABDOMEN: FINDINGS: The gallbladder is mildly distended. There are multiple mobile gallstones in the gallbladder. The gallbladder laureano do not appear abnormally thickened, and there is no pericholecystic fluid identified. The technologist reports negative sonographic Cerda's sign. The common bile duct is normal caliber at 2 mm. There are no abnormalities of the liver or spleen identified. There is no ascites seen. The bilateral kidneys are unremarkable. Visualized portions of the pancreas are unremarkable. Visualized portions of abdominal aorta and IVC appear normal caliber. IMPRESSION: Mildly distended gallbladder. Multiple gallstones in the gallbladder. No abnormal gallbladder wall thickening or pericholecystic fluid seen. Normal common bile duct at 2 mm.
[2016-10-16] MEDS ORDERED: DULCOLAX PR ONE (19:54)
[2016-10-16] MEDS ORDERED: DULCOLAX PO ONE (19:54)
[2016-10-16] MEDS: LIPITOR PO SCH (20:26)
[2016-10-17] MEDS: CARDIZEM PO SCH ×2 (04:00→08:34)
[2016-10-17 05:26] LABS: HEMATOCRIT 40.4 % (37.0-47.0); HEMOGLOBIN 13.2 g/dL (12.0-16.0); MCH 31.5 PG (27-31); MCHC 32.7 g/dL (33-37); MCV 96.4 FL (81-99); MPV 10.1 FL (7.4-10.4); RBC 4.19 XMIL (4.2-5.4)
[2016-10-17 05:40] LABS: AGAP 11; BUN 15 mg/dL (8-22); CALCIUM 8.7 mg/dL (8.8-10.2); CHLORIDE 104 mmol/L (98-107); COSMO 286; MAGNESIUM 1.9 mg/dL (1.5-2.7); POTASSIUM 3.9 mmol/L (3.5-5.1); SODIUM 143 mmol/L (136-145); TCO2 28 mmol/L (25-35)
--- NOTE | 2016-10-17 06:12 | EKG Report ---
Test Performed on : 10/16/2016 05:52:49 AM Test Reason : atrial fibrillation Blood Pressure : / mmHG Vent. Rate : 065 BPM Atrial Rate : 267 BPM P-R Int : 000 ms QRS Dur : 102 ms QT Int : 408 ms P-R-T Axes : 000 -27 138 degrees QTc Int : [address] \T\ T wave abnormality, consider anterolateral ischemia Abnormal ECG When compared with ECG of 14-OCT-2016 01:10, Junctional rhythm. has replaced Sinus rhythm. Vent. rate has decreased BY 75 BPM Criteria for Septal infarct are no longer present ST no longer depressed in Inferior leads Nonspecific T wave abnormality has replaced inverted T waves in Inferior leads Confirmed by Kat SHARMA, Jose A Christie ([id number]) on 10/17/2016 7:31:49 AM
[2016-10-17] MEDS: NORCO-5 PO PRN ×2 (06:26→23:23)
[2016-10-17] MEDS: PRILOSEC PO SCH (06:26)
[2016-10-17] MEDS: ZOFRAN IV PRN (06:26)
[2016-10-17] MEDS: ZOVIRAX PO SCH ×2 (08:34→21:38)
[2016-10-17] MEDS: ELIQUIS PO SCH ×2 (08:34→21:39)
[2016-10-17] MEDS: LANOXIN PO SCH (08:35)
[2016-10-17] MEDS: LOPRESSOR PO SCH ×2 (08:38→21:39)
[2016-10-17] MEDS: MIRALAX PO SCH ×2 (08:38→21:38)
--- NOTE | 2016-10-17 09:01 | PROGRESS NOTE ---
DATE: 10/17/2016 SUBJECTIVE: Ms Loza was admitted on 10/13/2016. Admitted with racing heart and back pain that progressively worsened. She saw her primary care doctor and was told to come to the ER. Had a racing heart and back pain. EKG initially showed SVT. Heart rate was 125. D-dimer was 0.6. ProBNP was 2,900. Did a pulmonary arteriogram which showed small peripheral emboli in the left upper and lower lobe. She was given Cardizem in the emergency room and admitted for left upper and left lower lobe emboli, supraventricular tachycardia, atrial fibrillation with rapid ventricular response, and hypertension. OBJECTIVE: General: Exam today, she is comfortable, sitting up. She says she is ready to go home. Vital signs: Temp 98.1 degrees, pulse 66, respirations 17, blood pressure 122/57. HEENT: Pupils are equal, round. Lungs: Clear in all lung guevara. Cardiovascular: Regular rhythm and rate without murmur or S3. Intake and output: Urine output was a 1000 mL. Note, her monitor shows she is still in atrial fibrillation, rate running 110-120 and I think she is scheduled for a cardioversion. ASSESSMENT AND PLAN: 1. Atrial flutter/atrial fibrillation with rapid ventricular response. Is on digitalis, Cardizem, Lopressor. Rate is somewhat controlled. She is anticoagulated. Plan I think is the cardiovert and I think that is possibly today. 2. Small pulmonary emboli. She is on anticoagulation and we have her on Eliquis 5 mg b.i.d. 3. In looking overall her orders I do not see any other changes. I think the plan is to proceed with cardioversion this morning. In looking over lab, hematocrit is 40. Electrolytes look good. Magnesium is 1.9, creatinine 0.8. cc: Bartolome Tan MD
[2016-10-17 09:19] LABS: HEPATITIS PROFILE ACUTE SEE COMMENTS
[2016-10-17] MEDS ORDERED: XYLOCAINE 2% VISCOUS ONE (10:07)
[2016-10-17] MEDS ORDERED: XYLOCAINE 4% TOPICAL SOLUTION ONE (10:07)
[2016-10-17] MEDS ORDERED: ANESTHESIA PB SET 88 IN 5742 ONE (10:29)
[2016-10-17] MEDS ORDERED: NS 1,000 ML ONE (10:29)
[2016-10-17] MEDS ORDERED: DIPRIVAN 1% ONE (11:09)
[2016-10-17] MEDS ORDERED: XYLOCAINE-MPF 2% ONE (12:00)
[2016-10-17] MEDS: LIPITOR PO SCH (21:39)
[2016-10-18] MEDS: NORCO-5 PO PRN ×2 (06:31→14:00)
[2016-10-18] MEDS ORDERED: CARDIZEM CD PO SCH (09:00)
[2016-10-18] MEDS: MIRALAX PO SCH (09:16)
[2016-10-18] MEDS: LANOXIN PO SCH (09:16)
[2016-10-18] MEDS: ZOVIRAX PO SCH (09:17)
[2016-10-18] MEDS: LOPRESSOR PO SCH (09:18)
[2016-10-18] MEDS: ELIQUIS PO SCH (09:18)
[2016-10-18] MEDS: PRILOSEC PO SCH (09:21)
[2016-10-18] MEDS ORDERED: MILK OF MAGNESIA PO PRN (09:24)
--- NOTE | 2016-10-18 09:59 | PROGRESS NOTE ---
DATE: 10/18/2016 HISTORY: Ms. Loza feels good. No complaints. Going back over her history, she has had a history for some time now of occasional postprandial epigastric discomfort with bloating. We have looked at her abdominal ultrasound done on the of this month. Mildly distended gallbladder with multiple stones in the gallbladder. No abnormal gallbladder wall thickening. Pericholecystic fluid seen. Normal common bile duct. She does have a history suggestive of biliary colic though. Echocardiogram done on 10/14/2016, aortic valve leaflets trileaflet. Pulmonic valve was normal. Tricuspid valve normal. Mitral valve normal. Normal left ventricular cavity size. Mild left ventricular hypertrophy. Estimated ejection fraction of 65%. Doppler studies reveal mild mitral regurgitation. Mild tricuspid regurgitation. Peak velocity across the tricuspid valve was 2.7 m/sec. Pulmonary artery systolic pressure was 40 mm. Peak velocity across the aortic valve less than 2 m/sec. There is no aortic stenosis. IMPRESSION AND PLAN: 1. The plan was yesterday to attempt cardioversion. They apparently went down for esophageal echocardiogram for cardioversion and found some clot in the left atrium. I will discuss this with cardiology. I think there was some thought about it so do not want to cardiovert at this time. She is already on blood thinner and controlling rate with medications. She is not complaining of any palpitations. 2. Small pulmonary emboli. Continue the blood thinners. She is on Eliquis 5 mg twice a day. 3. Hyperlipidemia, on Lipitor. 4. At the present time, she is on digoxin 0.125 mcg daily. She is on Cardizem CD 120 mg a day, metoprolol 50 mg twice a day. She is getting MiraLAX 17 g twice a day. I am going to let her have some milk of magnesia as needed. She still has not had a bowel movement. Discuss with cardiology. cc: Bartolome Tan MD
[2016-10-18 10:52] VITALS: BP 110/71
--- NOTE | 2016-10-18 11:17 | PROGRESS NOTE ---
DATE: 10/18/2016 SUBJECTIVE: Patient continues without chest discomfort or dyspnea. She has had no palpitations. She remains in what appears to be atypical atrial flutter with controlled rate. Cardioversion was not performed yesterday due to suspicion of left atrial appendage thrombus. PHYSICAL EXAMINATION: Vital Signs: Blood pressure 110/51, heart rate 100 and irregular. Neck: There is no significant jugular venous distention. Cardiac Examination: An irregular rate and rhythm without appreciable murmur or gallop. Chest: Clear to auscultation. Extremities: There is no evidence of peripheral edema. IMPRESSION: 1. Persistent atrial arrhythmias, probably atypical atrial flutter. Rate controlled. Patient is asymptomatic. 2. Suspected recent small pulmonary emboli. 3. Hyperlipidemia. RECOMMENDATIONS: 1. Continue anticoagulation with Eliquis 5 mg twice daily. 2. Continue current cardiovascular regimen unchanged, with reasonable for discharge at this point with plans to follow up in cardiology clinic in approximately 1 month. May consider repeat transesophageal echocardiogram, cardioversion after at least 6 weeks of anticoagulation. cc: David Padilla MD
--- NOTE | 2016-10-18 12:42 | DISCHARGE SUMMARY ---
ADMISSION DATE: 10/13/2016 DISCHARGE DATE: 10/18/2016 FAMILY PHYSICIAN: Dr. López. HISTORY OF PRESENT ILLNESS AND HOSPITAL COURSE: She presented with racing heart and some back pain over the past week and progressively worsened. An 86-year-old, white female who came in to [facility] ER. Saw her primary care physician on that day and was told to come to the ER because she was having heart racing and back pain for the past week. When she arrived to the emergency room, she was noted to have a heart rate of 125. EKG initially showed SVT, later revealed atrial fibrillation. Laboratory data showed D-dimer of 0.6. ProBNP 2900. I did a pulmonary arteriogram which showed small peripheral emboli in the left upper and lower lobes. She was given Cardizem 10 mg IV in the emergency room, 325 mg aspirin, and then started on Lovenox 1 mg/kg subcutaneously, given 1 dose in the emergency room. EKG was again done and it revealed atrial fibrillation, rapid ventricular rate of 105-120. She was put on a Cardizem drip and put on some O2, and was admitted. Admitted for left upper, left lower lobe pulmonary emboli seen on CT angiogram, supraventricular tachycardia consistent with atrial fibrillation. Rate was controlled with Cardizem. Echocardiogram was done on 10/14/2016. Aortic valve leaflet trileaflet, mildly sclerosed, opening normally. Pulmonic valve normal. Tricuspid valve normal. Mitral valve normal. There was left atrial enlargement. Normal left ventricular cavity size. Mild left ventricular hypertrophy. Estimated ejection fraction of 65%. Doppler study showed a pulmonary artery systolic pressure about 40 mmHg. Aortic valve appeared to have no stenosis. She remained in atrial fibrillation. Had an abdominal ultrasound. She had an extremity venous ultrasound and no evidence of deep or superficial venous thrombosis in bilateral lower extremities. Her abdominal ultrasound, mildly distended gallbladder, multiple gallstones in the gallbladder. No abnormal gallbladder thickening or polycystic fluid seen. Normal common bile duct at 2 mm. Cardiology followed her. Dr. Padilla was seeing her and felt that the persistent atrial arrhythmia was probable apical atrial flutter or atypical atrial flutter. Rate controlled. Patient asymptomatic. The patient has had a pulmonary emboli, small. The plan was to continue Eliquis at 5 mg twice a day. Continue current cardiovascular regimen and discharge. Plan is to follow up with cardiology in approximately a month. Consider repeat transesophageal echocardiogram. A cardioversion was going to be attempted yesterday, found a left atrial appendage thrombus. She also gives me symptoms that have been going on for some time. Postprandial pain that could be consistent with biliary colic. We did see some cholelithiasis on the ultrasound. I am going to set her up as an outpatient to follow up with Dr. Garcia. If symptoms should worsen, may need to see him earlier. We will discharge her on her current medication. She is on Zovirax 400 mg b.i.d., apixaban 5 mg b.i.d., Lipitor 80 mg at bedtime, Klonopin 0.5 mg q.12 hours p.r.n., Lanoxin 125 mcg daily, Cardizem CD 120 mg daily, milk of magnesia that she can use as needed for constipation, Antivert 25 mg q.6 hours p.r.n. vertigo, Lopressor 50 mg b.i.d., Prilosec 40 mg daily, MiraLAX 17 g b.i.d. DISCHARGE INSTRUCTIONS: She will follow up with her primary physician, Dr. Ida Nieto, and I think she is also seeing Dr. López. I think it is Dr. Ida Nieto. She will follow up in a month with Dr. Randy sherwood and will get an outpatient visit to see Dr. Seng Garcia. cc: Bartolome Tan MD
[2016-10-18] MEDS ORDERED: ASPIRIN PO SCH (12:45)
--- NOTE | 2016-10-21 09:19 | ECHO REPORT ---
ORDER DATE: 10/17/2016 INDICATION: The patient was brought to the cardiac catheterization laboratory for a NORM cardioversion. The patient has atrial fibrillation. PROCEDURE: Informed consent was obtained from the patient. Anesthesia was present. Prior to the procedure, oropharynx was anesthetized using lidocaine swish and swallow and Cetacaine spray. Propofol was given intravenously. Please see detailed anesthesia records. A transesophageal probe was easily passed into the esophagus. Ultrasound pictures were obtained. There was no complication. FINDINGS: 1. Normal left ventricular cavity size. Estimated ejection fraction of 55-60%. 2. Aortic valve leaflets were sclerosed, trileaflet, opening normally. Pulmonic valve was normal. 3. Mitral valve was normal. 4. Tricuspid valve was normal. 5. Ultrasound revealed the left atrial appendage had prominent pectinate muscles. In addition, there was a suspicion of thrombus noted in the left atrial appendage with a low flow by Doppler studies as well. Right atrium was normal. Eustachian valve noted. Saline contrast study was negative for patent foramen ovale. 6. The right ventricle prominent moderator band was noted. However, there was a suspicion of thrombus on the moderator band as well. Ascending aorta was normal. Descending aorta had layered plaque. There was no pericardial effusion. CONCLUSIONS: 1. Normal left ventricular cavity size. Estimated ejection fraction of 60%. 2. There was no aortic stenosis. There is mild aortic regurgitation, mild mitral regurgitation, and mild tricuspid regurgitation. 3. Thrombus was noted in the left atrial appendage, likely thrombus also noted attached to the moderator band in the right ventricle. Given this, cardioversion has been canceled. Patient will be anticoagulated and continue with the current medications. cc: MD Sobia Perez PA
== END 2016-10-18 14:15 | disposition home or self-care (01) ==
LOC: P.ED 12:10 → SUATTDRO 16:59 → 3S 16:59
PROVIDERS: ATTEND Emergency Medicine

== ENCOUNTER 2016-10-30 18:30 | Inpatient (IN) ==
--- NOTE | 2016-10-30 19:06 | ED EKG INTERP ---
This chart was entered by Russell Roque Scribe, acting as scribe for Francisco Javier Lara MD. EKG Interpretation - EKG Time of EKG reading by physician:: 18:37 EKG Read and Signed by:: Francisco Javier Lara EKG Interpretation (*Must complete 3 of following elements*): Abnormal (Left axis deviation; Septal infarct, age undetermined) Rate: 73 Rhythm: Sinus rhythm with premature supraventricular complexes This chart was documented by the indicated scribe, (Russell Roque Scribe) and accurately reflects the services I performed and decisions made by me, Francisco Javier Lara MD, as attested by the provider's signature.
[2016-10-30 19:36] LABS: MANUAL DIFF NEEDED? NO
[2016-10-30 19:42] LABS: BASO% 0.4 % (0.0-0.8); EOS# 0.04 X1000 (0.0-0.7); EOS% 0.9 % (0.0-10.0); HEMATOCRIT 36.6 % (37.0-47.0); HEMOGLOBIN 12.4 g/dL (12.0-16.0); LYMPH# 0.77 X1000 (1.2-3.4); LYMPH% 17.1 % (20.5-51.1); MCH 31.7 PG (27-31); MCHC 33.9 g/dL (33-37); MCV 93.6 FL (81-99); MONO# 0.64 X1000 (0.11-0.59); MONO% 14.2 % (1.7-9.3); MPV 9.4 FL (7.4-10.4); NEUT% 67.4 % (42.2-75.2); PLT 243 X1000 (130-400); RBC 3.91 XMIL (4.2-5.4)
[2016-10-30 20:01] LABS: INR 0.97; PROTIME 10.2 Seconds (9.2-11.7)
--- NOTE | 2016-10-30 20:04 | Diag Imaging Result Doc PS360 ---
EXAM: CHEST-PORTABLE HISTORY: chest pain TECHNIQUE: Portable AP chest COMPARISON: 10/13/2016 FINDINGS: The lungs are well expanded. The heart is mildly prominent. The vessels are not distended. No pleural effusions identified. Questionable tiny infiltrate in the mid left lung. No free air beneath the diaphragm. IMPRESSION: 1.Mild cardiomegaly 2.Questionable tiny infiltrate in the mid left lung. Electronically signed by Jerrell Martinez 10/30/2016 8:02 PM
[2016-10-30 20:06] LABS: AGAP 12; ALBUMIN 3.6 g/dL (3.5-5.0); ALKALINE PHOSPHATASE 44 U/L (32-104); BUN 10 mg/dL (8-22); CALCIUM 8.8 mg/dL (8.8-10.2); CHLORIDE 102 mmol/L (98-107); CK PROFILE 44 U/L (24-173); COSMO 275; GOT 16 U/L (10-30); GPT 16 U/L (10-36); POTASSIUM 3.9 mmol/L (3.5-5.1); SODIUM 138 mmol/L (136-145); TCO2 24 mmol/L (25-35); TOTAL BILIRUBIN 0.37 mg/dL (0.20-1.00); TOTAL PROTEIN 6.7 g/dL (6.3-8.3)
--- NOTE | 2016-10-30 20:43 | PROVIDER DOCUMENTATION ---
This chart was entered by Russell Roque Scribe, acting as scribe for Francisco Javier Lara MD. HPI-Chest Pain - General Chief Complaint: Chest Pain Stated Complaint: PALPITTIONS, SOB, LT SHOULDER PAIN Time Seen by Provider: 10/30/16 18:47 Source: patient Allergies/Adverse Reactions: Patient Allergies Allergy/AdvReac Type Severity Reaction Status Date / Time codeine AdvReac HIVES Verified 10/30/16 19:44 Home Medications: Home Medication List Medication Instructions Recorded Confirmed Last Taken Type Acyclovir 400 mg PO BID 10/13/16 10/30/16 10/30/16 History Dexlansoprazole [Dexilant] 60 mg PO DAILY 10/13/16 10/30/16 10/30/16 History Loteprednol 0.5% Oph Susp [Lotemax 1 drop HS 10/13/16 10/30/16 10/30/16 History 0.5% Oph Susp] Metoprolol Succinate 50 mg PO BID 10/13/16 10/30/16 10/30/16 History Olopatadine 0.2% Oph Solution 1 drop DAILY 10/13/16 10/30/16 10/30/16 History [Pataday 0.2% Oph Solution] Polyethylene Glycol 3350 [Miralax] 17 gm PO DAILY PRN PRN 10/13/16 10/30/16 History Tramadol [Ultram] 100 mg PO Q6H PRN PRN 10/13/16 10/30/16 10/12/16 History ATORVAstatin [Lipitor] 80 mg PO QHS #30 tablet 10/18/16 10/30/16 10/30/16 Rx Apixaban [Eliquis] 5 mg PO BID #60 tablet 10/18/16 10/30/16 10/30/16 Rx Aspirin 81 mg PO DAILY chewtab 10/18/16 10/30/16 10/30/16 Rx Digoxin [Lanoxin] 125 microgm PO DAILY #30 tablet 10/18/16 10/30/16 10/30/16 Rx Diltiazem C.d. [Cardizem Cd] 120 mg PO DAILY #30 capsule 10/18/16 10/30/1610/30 Rx - History of Present Illness-CP Nature of Presenting Problem: Pt is a 86 yowf who presents to ER with CC of constant sharp pain in her left scapula that adiates to her substernal chest x2 days. Pt denies any chest pain on exam, but reports it returns anytime that she moves. Pt was seen in ER 2 weeks ago and was dx with DVT and A-fib (Pt had a PE, was shocked, and then discovered blood clot behind her heart). Pt complains of nausea, mild sob, palpitations, and mild diaphoresis. While in the room, pt has a paroxysmal A- fib moment with rapid rate up to140. Location: reports: shoulder (left scapula) Chest Pain Radiation: reports: sternal notch Quality of Pain: reports: sharp Severity in ED: moderate Onset/Duration: 2 days ago Timing: still present, constant Modifying Factors: improves with: rest. worse with: movement Associated Symptoms: reports: back pain, diaphoresis, nausea, shortness of breath. denies: abdominal pain, dizziness, edema, fatigue, fever/chills, headache, heartburn, rash, swelling/lump in chest, syncope, vomiting, weakness Similar Symptoms Previously?: Yes Recently Seen Here or By Another Healthcare Provider: Yes Review of Systems - Adult - REVIEW OF SYSTEMS - ADULT Constitutional: denies: chills, fever, fatique, night sweats, weight gain, weight loss Eyes: reports: no symptoms reported Ears, Nose, Mouth & Throat: reports: no symptoms reported Cardiovascular: reports: chest pain, palpitations. denies: edema, heart murmur , irregular heart rate, orthopnea, poor circulation, PND, syncope Respiratory: reports: dyspnea on exertion, shortness of breath. denies: chronic cough, cough, excessive sputum production, hemoptysis, pleurisy, wheezing Gastrointestinal: reports: nausea. denies: abdominal pain, diarrhea, vomiting Genitourinary: reports: no symptoms reported Musculoskeletal: reports: no symptoms reported Integumentary: reports: no symptoms reported Neurological: reports: no symptoms reported Psychiatric: reports: no symptoms reported Endocrine: reports: no symptoms reported Hematologic/Lymphatic: reports: no symptoms reported Allergic/Immunologic: reports: no symptoms reported All Other Systems: Reviewed and Negative Past History - Adult - PAST MEDICAL HISTORY-ADULT Review of Records: reports: Nursing Assessment Review, Medications Reviewed - IMMUNIZATION STATUS Childhood Immunizations: See Nurse Assessment Flu Vaccine: See Nurse Assessment Physical Exam-General - PHYSICAL EXAM-ADULT Initial Vital Signs Reviewed: Yes - CONSTITUTIONAL General Appearance: appears well, alert, mild distress - EYES Eyes: PERRL/EOMI, pink conjunctivae - HEAD, EARS, NOSE, MOUTH & THROAT HENMT: normocephalic/atraumatic, moist mucous membranes, normal ENT inspection, TMs normal, pharynx normal. negative: pharyngeal erythema, tonsillar exudate, TM abnormal - NECK Neck: non-tender, full range of motion, supple, normal inspection. negative: C- spine tenderness, limited range of motion, lymphadenopathy - RESPIRATORY Respiratory: chest non-tender, lungs clear, normal breath sounds, no pleuratic chest pain, no respiratory distress, no accessory muscle use. negative: respiratory distress, decreased breath sounds, accessory muscle use, wheezing - CARDIOVASCULAR Cardiovascular: normal peripheral pulses, tachycardia (paroxysmal), irregularly irregular. negative: regular rate, rhythm, bradycardia - GASTROINTESTINAL (ABDOMEN) Abdominal Exam: normal bowel sounds, non tender, soft, no organomegaly, no pulsatile mass. negative: guarding, rebound, tenderness - LYMPHATIC Lymphatic: no adenopathy - MUSCULOSKELETAL Back Exam: normal inspection, no CVA tenderness, no vertebral tenderness, scoliosis, other ( left scapula tender to palpation). negative: CVA tenderness , vertebral tenderness Extremity: normal range of motion, non-tender, normal gait, normal inspection, no pedal edema, no calf tenderness, normal capillary refill, pelvis stable, other (lower extremity vericosities). negative: deformity, erythema, inflammation, swelling, tenderness - SKIN Integumentary: normal color, normal turgor, warm/dry. 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 negative: facial droop, focal weakness, motor weakness, sensory deficit - PSYCHIATRIC Psych/Mental Status: normal mood/affect, normal thought content, normal thought process, oriented x 3 Progress - PLAN OF CARE/RESULTS Progress/Plan/Lab Results: Vital Signs - 8 hr 10/30/16 18:35 10/30/16 20:13 Temperature 98.6 F Pulse Rate 112 H 98 H Respiratory Rate 22 23 Blood Pressure 155/53 158/97 O2 Sat by Pulse Oximetry 100 95 Laboratory Results - last 24 hr 10/30/16 10/30/16 10/30/16 18:30 19:24 19:24 WBC 4.50 L RBC 3.91 L Hgb 12.4 Hct 36.6 L MCV 93.6 MCH 31.7 H MCHC 33.9 RDW Std Deviation 13.1 Plt Count 243 MPV 9.4 Immature Gran % (Auto) 0.0 Neut % (Auto) 67.4 Lymph % (Auto) 17.1 L [place] % (Auto) 14.2 H Eos % (Auto) 0.9 Baso % (Auto) 0.4 Immature Gran # (Auto) 0.00 Neut # (Auto) 3.03 Lymph # (Auto) 0.77 L [place] # (Auto) 0.64 H Eos # (Auto) 0.04 Baso # (Auto) 0.02 PT INR PTT (Actin FS) D-Dimer Sodium 138 Potassium 3.9 Chloride 102 Carbon Dioxide 24 L Anion Gap 12 BUN 10 Creatinine 0.5 Estimated GFR/1.73 m2 > 60 BUN/Creatinine Ratio 20 Glucose 107 H Calculated Osmolality 275 Calcium 8.8 Magnesium 2.0 Total Bilirubin 0.37 AST 16 ALT 16 Alkaline Phosphatase 44 Creatine Kinase 44 Troponin T Xcx-E-Cebmmilycyg Pept Total Protein 6.7 Albumin 3.6 Globulin 3.1 Albumin/Globulin Ratio 1.2 TSH 1.28 10/30/16 10/30/16 10/30/16 19:24 19:24 19:24 WBC RBC Hgb Hct MCV MCH MCHC RDW Std Deviation Plt Count MPV Immature Gran % (Auto) Neut % (Auto) Lymph % (Auto) [place] % (Auto) Eos % (Auto) Baso % (Auto) Immature Gran # (Auto) Neut # (Auto) Lymph # (Auto) [place] # (Auto) Eos # (Auto) Baso # (Auto) PT 10.2 INR 0.97 PTT (Actin FS) 32.0 D-Dimer 0.26 Sodium Potassium Chloride Carbon Dioxide Anion Gap BUN Creatinine Estimated GFR/1.73 m2 BUN/Creatinine Ratio Glucose Calculated Osmolality Calcium Magnesium Total Bilirubin AST ALT Alkaline Phosphatase Creatine Kinase Troponin T Rgc-U-Szfwzomoryv Pept 1898 H Total Protein Albumin Globulin Albumin/Globulin Ratio TSH 10/30/16 19:24 WBC RBC Hgb Hct MCV MCH MCHC RDW Std Deviation Plt Count MPV Immature Gran % (Auto) Neut % (Auto) Lymph % (Auto) [place] % (Auto) Eos % (Auto) Baso % (Auto) Immature Gran # (Auto) Neut # (Auto) Lymph # (Auto) [place] # (Auto) Eos # (Auto) Baso # (Auto) PT INR PTT (Actin FS) D-Dimer Sodium Potassium Chloride Carbon Dioxide Anion Gap BUN Creatinine Estimated GFR/1.73 m2 BUN/Creatinine Ratio Glucose Calculated Osmolality Calcium Magnesium Total Bilirubin AST ALT Alkaline Phosphatase Creatine Kinase Troponin T < 0.010 Ahh-U-Doxuuyifeya Pept Total Protein Albumin Globulin Albumin/Globulin Ratio TSH Orders Category Date Time Status Cardiac Monitoring DIRECTED Care 10/30/16 18:48 Active Oxygen Therapy- ED Nursing DIRECTED Care 10/30/16 18:48 Active Saline Loc NOW Care 10/30/16 18:48 Active CHEST-PORTABLE [RAD] Stat Exams 10/30/16 18:48 Completed CBC WITH ELECTRONIC DIFF [HEME] Stat Lab 10/30/16 19:24 Completed CK PROFILE [SP CHEM] Stat Lab 10/30/16 19:24 Completed COMPREHENSIVE METABOLIC PANEL [CHEM] Stat Lab 10/30/16 19:24 Completed D-DIMER [CHEM] Stat Lab 10/30/16 19:24 Completed MAGNESIUM [CHEM] Stat Lab 10/30/16 19:24 Completed PRO B-NATRIURETIC PEPTIDE Stat Lab 10/30/16 19:24 Completed PROTIME WITH INR [COAG] Stat Lab 10/30/16 19:24 Completed PTT [COAG] Stat Lab 10/30/16 19:24 Completed TROPONIN T Stat Lab 10/30/16 19:24 Completed TSH Stat Lab 10/30/16 18:30 Completed EKG [EKG] Stat Ther 10/30/16 18:40 Ordered Result Diagrams: 10/30/16 19:24 10/30/16 19:24 - XRAY 1 XRAY: Bilateral XRAY Study: Chest (Mild cardiomegaly; Questionable tiny infiltrate in the mid left ling - Dr. Martinez (Radiologist)) Impression: See EMR Report XRAY Interpretation: See report - CONSULTS/PCP/HOSPITALIST Notification #1 *Consult/PCP/Hospitalist*: Dr. Padilla (Radio Station Audio Engineer) Time Discussed: 20:38 Reason/Comments: recommend starting amiodarone 200mg tid and admit to Dr. Jarvis Departure - Departure Time of Disposition Decision: 20:47 DIAGNOSIS: Paroxysmal atrial fibrillation Chest pain Qualifiers: Chest pain type: unspecified Qualified Code(s): R07.9 - Chest pain, unspecified Disposition: ADMITTED INPATIENT 09 Certified Medical Emergency: Emergent Condition: Stable Referrals and Follow-Ups: Ida Nieto MD [Primary Care Provider] - - Critical Care Note This patient required my direct & personal management of CC.: No This chart was documented by the indicated scribe, (Russell Roque Scribe) and accurately reflects the services I performed and decisions made by me, Francisco Javier Lara MD, as attested by the provider's signature.
[2016-10-30] MEDS ORDERED: ZOFRAN IV PRN (22:43)
--- NOTE | 2016-10-30 22:47 | HISTORY AND PHYSICAL ---
PRIMARY CARE PHYSICIAN: Ida Nieto MD CHIEF COMPLAINT: Chest pain and shortness of breath x2 days. HISTORY OF PRESENTING ILLNESS: An 86-year-old white female with a history of atrial flutter, pulmonary embolism, hyperlipidemia, cholelithiasis and chronic low back pain, who had just been discharged from the hospital about 2 weeks ago after treatment for atrial flutter and pulmonary embolism, presented again to emergency department complaining of persistent chest pain for the past 2 days. She states it was substernal and was radiating to her left shoulder and she rated the pain 6/10 and states that she had associated symptoms of shortness of breath and nausea. Patient was evaluated in the ER, her case was discussed with chief of hospital medicine regional director by ER physician and as per ER physician, Cardiology had recommended patient be started on amiodarone due to the atrial flutter and tachycardia that she was having. At the time of my examination, she had denied any headache, fever, chills, hemoptysis, melena, weight changes, but complained of chest discomfort and not feeling well. PAST MEDICAL HISTORY: Pulmonary embolism, atrial flutter, atrial thrombus, hyperlipidemia, cholelithiasis, chronic low back pain. PAST SURGICAL HISTORY: Left eye corneal transplant. ALLERGIES: Codeine. CURRENT MEDICATIONS: As listed in MAR. SOCIAL HISTORY: She denies any history of smoking, alcohol or illicit drug use. FAMILY HISTORY: No history of coronary disease. REVIEW OF SYSTEMS: Twelve point review of systems is as listed in HPI. Other systems negative. PHYSICAL EXAMINATION: GENERAL: An ill-appearing elderly female. She is having some discomfort from the chest pain. VITAL SIGNS: Temperature 98.6 degrees, pulse 120, respiration 19, blood pressure 167/92. HEENT: Atraumatic, normocephalic. Extraocular movements intact. NECK: No masses. CHEST: Rhonchi. CARDIOVASCULAR: Irregular. ABDOMEN: Soft. Positive bowel sounds. EXTREMITIES: No edema. NEUROLOGIC: She is awake, alert, oriented x3. : No bladder distention. SKIN: Warm. LABORATORIES AND STUDIES: Sodium 138, potassium 3.9, chloride 102, CO2 24, BUN is 10, creatinine 0.5, glucose is 107. ProBNP is 1898, troponin 0.010. WBC 4.50, hemoglobin 12.4, hematocrit 36.6, platelets 243,000. ASSESSMENT: An 86-year-old female with a history of pulmonary embolus and atrial flutter, just recently discharged from hospital 2 weeks who presents again with complaint of chest pain. The patient will need hospitalization for further management assessment. 1. Chest pain. 2. Atrial flutter. 3. Left atrial thrombus recently diagnosed. 4. Pulmonary embolism recently diagnosed. 5. Hyperlipidemia. 6. Chronic low back pain. PLAN: 1. We will admit patient to cardiac intensive care unit. 2. Continue with cardiac workup. Check electrocardiogram, serial cardiac enzymes. Have patient continue on aspirin. 3. We will consult Cardiology. 4. We will start patient on amiodarone. 5. Continue with anticoagulants with Eliquis. 6. We will restart home medications. 7. We will give her pain control. 8. We will put her on supplemental oxygen. 9. Put on deep venous thrombosis prophylaxis with Sequential Compression Devices. 10. We will continue to follow and reassess. cc: Lj Jarvis MD
[2016-10-30] MEDS ORDERED: ULTRAM PO PRN (23:40)
[2016-10-30] MEDS ORDERED: AYR NASAL SPRAY NAS PRN ×2 (23:44→23:50)
[2016-10-30] MEDS: SODIUM CHLORIDE 0.9% INJ SCH (23:55)
[2016-10-30] MEDS: PROTONIX IV SCH (23:55)
[2016-10-31] MEDS: ULTRAM PO PRN ×3 (00:07→06:20)
[2016-10-31 04:58] LABS: MANUAL DIFF NEEDED? NO
[2016-10-31 05:01] LABS: BASO% 1.1 % (0.0-0.8); EOS# 0.09 X1000 (0.0-0.7); EOS% 1.9 % (0.0-10.0); HEMATOCRIT 39.8 % (37.0-47.0); HEMOGLOBIN 13.5 g/dL (12.0-16.0); LYMPH# 0.94 X1000 (1.2-3.4); LYMPH% 20.3 % (20.5-51.1); MCH 31.8 PG (27-31); MCHC 33.9 g/dL (33-37); MCV 93.6 FL (81-99); MONO# 0.64 X1000 (0.11-0.59); MONO% 13.8 % (1.7-9.3); MPV 9.5 FL (7.4-10.4); NEUT% 62.9 % (42.2-75.2); PLT 244 X1000 (130-400); RBC 4.25 XMIL (4.2-5.4)
[2016-10-31 05:16] LABS: AMYLASE 26 U/L (20-200); LIPASE 35 U/L (13-60)
[2016-10-31 05:22] LABS: AGAP 13; BUN 6 mg/dL (8-22); CALCIUM 8.4 mg/dL (8.8-10.2); CHLORIDE 107 mmol/L (98-107); COSMO 282; POTASSIUM 3.7 mmol/L (3.5-5.1); SODIUM 143 mmol/L (136-145); TCO2 23 mmol/L (25-35)
--- NOTE | 2016-10-31 07:14 | EKG Report ---
Test Performed on : 10/30/2016 6:37:25 PM Test Reason : Order Cancelled Blood Pressure : / mmHG Vent. Rate : 073 BPM Atrial Rate : 065 BPM P-R Int : 192 ms QRS Dur : 088 ms QT Int : 416 ms P-R-T Axes : 084 -36 041 degrees QTc Int : 458 ms Sinus rhythm. with premature supraventricular complexes. Left axis deviation Septal infarct , age undetermined Abnormal ECG When compared with ECG of 16-OCT-2016 05:52, Sinus rhythm. has replaced Junctional rhythm. Septal infarct is now present Nonspecific T wave abnormality, improved in Inferior leads T wave inversion no longer evident in Anterior leads Unconfirmed Result
[2016-10-31] MEDS ORDERED: LASIX IV SCH (09:00)
[2016-10-31] MEDS ORDERED: LANOXIN PO SCH (09:00)
[2016-10-31] MEDS ORDERED: PATADAY 0.2% OPH SOLUTION RIGHT EYE SCH (09:00)
[2016-10-31] MEDS ORDERED: CORDARONE PO SCH (09:00)
--- NOTE | 2016-10-31 09:15 | PROGRESS NOTE ---
DATE: 10/31/2016 SUBJECTIVE: She presented with rapid heart beats. She has had atrial fibrillation. We have known about the atrial fibrillation. I think she had a transesophageal echo done on 10/17/[address] Castro. Normal left ventricular cavity size. Ejection fraction 60%. Thrombus was noted on the left atrial appendage, likely thrombus was noted attached to the moderator band in the right ventricle. So they are planning cardioversion, but wanted to about 4 weeks. She is on anticoagulant. She really presented because of the palpitations, but she did have a little bit of chest discomfort. LABS: On presentation, troponin was less than 0.01. Electrolytes look good. Creatinine is 0.5, sodium 143, potassium 3.7 chloride 107, bicarb 23, BUN 6, creatinine 0.5. ProBNP was 1898. Chest x-ray yesterday mild cardiomegaly, questionable tiny infiltrate in the mid left lung, but really had no symptoms to suggest pneumonitis. EKG that was done yesterday, EKG showed sinus rhythm at that time with frequent PACs, but her monitor shows atrial fibrillation, rate is better controlled. Rate apparently was up to 140s in the emergency room, between 120s and 140s. EXAM: Vital Signs: Afebrile, temperature 98, pulse 90, respirations 16, blood pressure 122/82. Lungs: Clear in all lung guevara. Cardiovascular: Regular rate without murmur or S3. Abdomen: Soft. Skin: Warm and dry. Weight 147 pounds. : Urine output was 3 L. ASSESSMENT AND PLAN: Atrial fibrillation. Apparently they were planning on cardioversion. MEDICATIONS: She is on amiodarone 200 mg p.o. t.i.d., she takes Eliquis 5 mg b.i.d., aspirin 81 mg a day, Lipitor 80 mg a day. Digoxin 125 mcg p.o. daily. Cardizem CD 120 mg daily. Lasix 40 mg IV daily, metoprolol 50 mg b.i.d. Protonix 40 mg IV q.24 hours. She takes Ultram p.r.n. pain. I think IV is to keep vein open. We will see what cardiology wants to do. cc: Bartolome Tan MD
[2016-10-31] MEDS: ELIQUIS PO SCH ×2 (09:20→20:39)
[2016-10-31] MEDS: TOPROL XL PO SCH ×2 (09:20→21:27)
[2016-10-31] MEDS: CARDIZEM CD PO SCH (09:21)
[2016-10-31] MEDS: ASPIRIN PO SCH (09:21)
[2016-10-31] MEDS: ZOVIRAX PO SCH ×2 (09:21→20:39)
[2016-10-31] MEDS: CORDARONE PO SCH ×2 (13:18→16:11)
--- NOTE | 2016-10-31 14:37 | CONSULTATION ---
DATE OF CONSULTATION: 10/31/2016 IMPRESSION: 1. Recurrent atrial arrhythmias, including atypical atrial flutter and some atrial fibrillation. Patient is intermittently in sinus rhythm on presentation with associated palpitations. 2. Chest discomfort in association #1. 3. Suspected small distal pulmonary emboli on chest computed tomography angiography in left upper and left lower lobes earlier this month. Patient on anticoagulation. 4. Atherosclerotic carotid disease. 5. Hyperlipidemia. 6. Scoliosis with associated chronic back discomfort. 7. Gastroesophageal reflux disease. RECOMMENDATIONS: 1. Given intermittent nature of atrial arrhythmias at this point alternating with sinus rhythm, we will try and initiate amiodarone to see if sinus rhythm can be maintain. 2. Continue anticoagulation. 3. Screen for coronary disease with Lexiscan sestamibi study. HISTORY: This 86-year-old, white female, with past history of atrial arrhythmias, hyperlipidemia, atherosclerotic carotid disease, chronic back pain related to scoliosis, recent suspected pulmonary emboli, was admitted emergency room last night after she returned with intermittent palpitations and some chest tightness. She was just hospitalized here earlier this month after presenting to her primary care doctor with right posterior chest pain. She was noted to have tachycardia and was referred for admission. She had chest CT scan which reported evidence of distal pulmonary emboli in the left upper lobe and left lower lobe. She manifested atrial tachyarrhythmias, including atypical atrial flutter and some atrial fibrillation. She was started on rate control medications and anticoagulation. NORM cardioversion was pursued given persistence of her atrial tachyarrhythmias, but there was some suspicion of a possible clot and cardioversion was not performed. She was discharged on anticoagulant therapy and rate control therapy. She has done fairly well since discharge. However, yesterday she started experiencing intermittent palpitations. She also experience some continuous low-grade chest tightness for many hours. PAST MEDICAL HISTORY: 1. Atrial tachyarrhythmias. 2. Recent suspected small pulmonary emboli in distal branches of pulmonary arteries and left upper lobe and left lower lobe. 3. Atherosclerotic carotid disease. 4. Hyperlipidemia. 5. Gastroesophageal reflux. 6. Chronic back pain related to scoliosis. 7. 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 ALLERGIES: She is allergic or intolerant to codeine. MEDICATIONS PRIOR TO ADMISSION: As listed. SOCIAL HISTORY: She is . She does not smoke or use alcohol. FAMILY HISTORY: Negative for premature coronary disease. REVIEW OF SYSTEMS: Pulmonary: Negative. Gastrointestinal: Negative. Constitutional: Negative. Remainder of review of systems negative beyond history of present illness with 14 total systems reviewed. PHYSICAL EXAMINATION: General: This is a thin, older, white female, in no distress. Vital Signs: As recorded are stable. HEENT: Extraocular movements intact. Mucous membranes are moist. Neck: Supple. No jugular venous distention. No carotid bruits. Chest: Clear to auscultation. Cardiac: Reveals irregular rate and rhythm without appreciable murmur or gallop. Abdomen: Soft, nontender. Bowel sounds are normal. Extremities: Without edema. Neurologic: Reveals her to be alert and fully oriented. Speech is fluent. She moves all 4 extremities equally well. Skin: Warm dry. Psychiatric: Reveals mood to be appropriate. DIAGNOSTIC DATA: ECG on presentation demonstrates sinus rhythm with frequent premature supraventricular complexes, left axis deviation and cannot rule out septal infarct of undetermined age. Nonspecific T-wave abnormality demonstrated. ECG monitor shows atrial fibrillation at this point. LABORATORY DATA: Initial troponin less than 0.01. Followup troponin less than 0.01. TSH 1.28. cc: David Padilla MD
[2016-10-31] MEDS ORDERED: PATIENT'S OWN MED LEFT EYE SCH (21:00)
[2016-10-31] MEDS ORDERED: LIPITOR PO SCH (21:00)
[2016-10-31] MEDS: SODIUM CHLORIDE 0.9% INJ SCH (21:27)
[2016-10-31] MEDS: PROTONIX IV SCH ×2 (21:27→22:28)
[2016-11-01] MEDS: ULTRAM PO PRN (03:26)
[2016-11-01 08:04] VITALS: BP 132/55
[2016-11-01] MEDS ORDERED: LEXISCAN ONE (08:37)
[2016-11-01] MEDS ORDERED: PATADAY 0.2% OPH SOLUTION LEFT EYE SCH (09:00)
--- NOTE | 2016-11-01 10:22 | PROGRESS NOTE ---
DATE: 11/01/2016 SUBJECTIVE: Patient continues without chest discomfort or dyspnea on room air. She has converted to sinus rhythm. OBJECTIVE: Vital Signs: Blood pressure 132/55, heart rate 60 and regular with ECG monitor showing sinus rhythm. Neck: There is no significant jugular venous distention. Chest: Clear to auscultation. Cardiac Exam: Reveals a regular rate and rhythm without appreciable murmur or gallop. There is no evidence of peripheral edema. IMPRESSIONS: 1. Recurrent atrial arrhythmias including atypical atrial flutter and some atrial fibrillation. Patient intermittently in sinus rhythm on presentation and now has maintained sinus rhythm since initiation of amiodarone. 2. Chest discomfort in associated with #1. 3. Suspected small distal pulmonary emboli on chest CT angiography involving left upper lobe and left lower lobe distal branches earlier this month. Patient on anticoagulation. 4. Atherosclerotic carotid disease. 5. Hyperlipidemia. 6. Gastroesophageal reflux disease. PLAN: 1. Continue amiodarone at 200 mg p.o. twice daily. 2. Discontinue digoxin. 3. Continue anticoagulation. 4. Follow through with screening for coronary disease with Lexiscan sestamibi study today. 5. If Lexiscan sestamibi study negative, reasonable to discharge the patient home on current regimen. She has a follow-up appointment with me the middle of this month. cc: David Padilla MD
[2016-11-01] MEDS: ASPIRIN PO SCH (10:27)
[2016-11-01] MEDS: ZOVIRAX PO SCH (10:27)
[2016-11-01] MEDS: CARDIZEM CD PO SCH (10:28)
[2016-11-01] MEDS: TOPROL XL PO SCH (10:28)
[2016-11-01] MEDS: ELIQUIS PO SCH (10:29)
[2016-11-01] MEDS ORDERED: NORCO-7.5 PO PRN (12:41)
[2016-11-01] MEDS ORDERED: FLEXERIL PO SCH (13:00)
--- NOTE | 2016-11-01 13:31 | DISCHARGE SUMMARY ---
ADMISSION DATE: 10/30/2016 DISCHARGE DATE: 11/01/2016 CONSULTATIONS: Dr. David Padilla with cardiology. PERTINENT PROCEDURES: Chest x-ray showed mild cardiomegaly questionable tiny infiltrate in the mid left lung. DISCHARGE DIAGNOSES: 1. Recurrent atrial arrhythmias including atypical atrial flutter and some atrial fibrillation with intermittent sinus rhythm. The patient has maintained a sinus rhythm. Was initiated on amiodarone by Cardiology. Will follow up with mounika Ulrich. 2. Chest discomfort associated with #1, resolved. 3. Suspected small distal pulmonary emboli on chest CT involving the left upper lobe and left lower lobe branches earlier in the month. The patient is currently on anticoagulation. 4. Atherosclerotic carotid disease. 5. Hyperlipidemia. 6. Gastroesophageal reflux disease. HOSPITAL COURSE: Ms. Loza is an 86-year-old female with a history of atrial flutter, PE, hyperlipidemia, cholelithiasis and chronic low back pain who was just discharged from the hospital about 2 weeks ago after treatment for atrial flutter and pulmonary embolism. She presented to the emergency room complaining of persistent chest pain for 2 days. It was substernal radiating to her left shoulder. It was associated with shortness of breath and nausea. She was evaluated in the ED and cardiology recommended that the patient be started on amiodarone due to the atrial flutter and tachycardia. She was admitted to [facility] to continue with a full cardiac workup. Consult to Cardiology. Again she was started on amiodarone in combination with her digoxin as well as continued on her Eliquis and supplemental O2. The patient after this regimen has now maintained a sinus rhythm. Her chest discomfort has subsided so she will continue on amiodarone 200 mg p.o. twice daily, and they discontinued her digoxin and continued her anticoagulation with Eliquis, and she will need to continue her follow through screening for coronary artery disease with Lexiscan study today, and after her study she can be discharged home on her current regimen and follow up with Dr. Padilla. VITAL SIGNS: Temperature 97.8 degrees, heart rate 60, respirations 14, blood pressure 132/55, O2 saturation is 100% on room air. DISCHARGE DIET: Healthy heart. DISCHARGE MEDICATIONS: As per Dr. Jiménez. Please see MAR. FOLLOWUP: The patient is being discharged home today after her Lexiscan to continue to follow up with Dr. Padilla as well as her primary care physician, Dr. Iad Nieto. Patient can return to the ED for any worsening of symptoms. Dictated by AVTAR Lockwood for Randell Jiménez MD cc: MD Ida Storm MD
--- NOTE | 2016-11-01 14:45 | Diag Imaging Result Document ---
PROCEDURE NAME: MYOCARDIAL PERF SCAN, STR/REST - 10/31/2016 LEXISCAN CARDIOLITE STRESS TEST: Lexiscan was infused per standard protocol. There was no chest pain. Stress electrocardiogram was negative for ischemia. Following Lexiscan infusion, Cardiolite was injected. Baseline electrocardiogram revealed normal sinus rhythm, nonspecific ST- T changes. Then 10.7 mCi of Cardiolite was injected for the resting phase, 31 millicuries of Cardiolite was injected for the stress phase. Gated SPECT images were obtained in standard views. Images revealed chest wall attenuation. There is normal left ventricular cavity size, normal myocardial perfusion. Left ventricular ejection fraction 68%. CONCLUSIONS: 1. No chest pain. 2. Negative Lexiscan stress electrocardiogram. 3. Normal myocardial perfusion. 4. Left ventricular ejection fraction 68%. cc: MD David Perez MD
[2016-11-01] MEDS ORDERED: COLACE PO SCH (21:00)
[2016-11-01] MEDS ORDERED: CORDARONE PO SCH (21:00)
[2016-11-01] MEDS ORDERED: LOPRESSOR PO SCH ×2 (21:00)
[2016-11-02] MEDS ORDERED: PRILOSEC PO SCH (07:00)
== END 2016-11-01 13:25 | disposition home or self-care (01) ==
LOC: ED 18:30 → 3S 22:23 → SUATTDRO 22:23
PROVIDERS: ATTEND Internal Medicine

== ENCOUNTER 2016-12-23 01:25 | Observation (INO) ==
[2016-12-23] MEDS ORDERED: ASPIRIN PO STA (01:34)
[2016-12-23] MEDS ORDERED: NITROGLYCERIN SL PRN (01:40)
[2016-12-23] MEDS ORDERED: NITROGLYCERIN ONE (01:42)
[2016-12-23] MEDS ORDERED: MORPHINE IV ONE ×2 (01:46→02:44)
[2016-12-23 01:51] LABS: MANUAL DIFF NEEDED? NO
[2016-12-23 01:55] LABS: BASO% 0.4 % (0.0-0.8); EOS# 0.08 X1000 (0.0-0.7); EOS% 0.9 % (0.0-10.0); HEMATOCRIT 40.3 % (37.0-47.0); HEMOGLOBIN 13.8 g/dL (12.0-16.0); LYMPH# 0.93 X1000 (1.2-3.4); LYMPH% 9.9 % (20.5-51.1); MCH 31.9 PG (27-31); MCHC 34.2 g/dL (33-37); MCV 93.3 FL (81-99); MONO# 0.68 X1000 (0.11-0.59); MONO% 7.2 % (1.7-9.3); MPV 9.2 FL (7.4-10.4); NEUT% 81.6 % (42.2-75.2); PLT 222 X1000 (130-400); RBC 4.32 XMIL (4.2-5.4)
[2016-12-23 02:03] LABS: INR 0.99; PROTIME 10.4 Seconds (9.2-11.7); PTT 31.2 Seconds (22.0-36.0)
[2016-12-23 02:13] LABS: AGAP 11; ALBUMIN 4.1 g/dL (3.5-5.0); ALKALINE PHOSPHATASE 51 U/L (32-104); BUN 11 mg/dL (8-22); CHLORIDE 100 mmol/L (98-107); CK PROFILE 89 U/L (24-173); COSMO 277; GOT 23 U/L (10-30); GPT 19 U/L (10-36); MAGNESIUM 1.9 mg/dL (1.5-2.7); POTASSIUM 4.4 mmol/L (3.5-5.1); SODIUM 138 mmol/L (136-145); TCO2 27 mmol/L (25-35); TOTAL PROTEIN 6.8 g/dL (6.3-8.3)
[2016-12-23] MEDS ORDERED: ZOFRAN ONE (02:28)
[2016-12-23] MEDS ORDERED: ZOFRAN IV ONE (02:33)
--- NOTE | 2016-12-23 02:59 | PROVIDER DOCUMENTATION ---
This chart was entered by Soraya Byrd Scribe, acting as scribe for Westley Funez MD. HPI-Chest Pain - General Chief Complaint: Chest Pain Stated Complaint: CHEST PAIN Time Seen by Provider: 12/23/16 01:58 Source: patient Allergies/Adverse Reactions: Patient Allergies Allergy/AdvReac Type Severity Reaction Status Date / Time codeine AdvReac HIVES Verified 12/23/16 02:17 Home Medications: Home Medication List Medication Instructions Recorded Confirmed Last Taken Type Acyclovir [Zovirax] 400 mg PO BID 12/23/16 12/23/16 12/22/16 21:00 History Amiodarone HCl [Amiodarone HCl] 1 each PO QAM 12/23/16 12/23/16 12/22/16 07:00 History Apixaban [Eliquis] 5 mg PO BID 12/23/16 12/23/16 12/22/16 21:00 History Aspirin [Aspirin EC] 81 mg PO QAM 12/23/16 12/23/16 12/22/16 09:00 History Atorvastatin Calcium [Lipitor] 80 mg PO QHS 12/23/16 12/23/16 12/22/16 21:00 History Cyclobenzaprine HCl [Flexeril] 5 mg PO PRN PRN 12/23/16 12/23/16 Unknown History Dexlansoprazole [Dexilant] 60 mg PO QAM 12/23/16 12/23/16 12/22/16 09:00 History Docusate Sodium 100 mg PO BID 12/23/16 12/23/16 12/22/16 21:00 History Hydrocodone/APAP 7.5 mg/325 mg 1 each PO Q4-6H PRN PRN 12/23/16 12/23/16 Unknown History [Flushing-7.5] Loteprednol 0.5% Oph Susp [Lotemax 1 drop OPH QHS 12/23/16 12/23/16 12/22/16 21: 00 History 0.5% Oph Susp] Metoprolol Tartrate [Metoprolol 12.5 mg PO BID 12/23/16 12/23/16 12/22/16 21:00 History Tartrate] Olopatadine 0.2% Oph Solution 1 each OPH DAILY 12/23/16 12/23/1612/22/17 09:00 History [Pataday 0.2% Oph Solution] - History of Present Illness-CP Nature of Presenting Problem: PT is a 86 year old female who came to the ED with a cc of pressure light chest pain starting at 7:30 that comes and goes. Pt denies N/V, diaphoresis, fever, and chills. She was admitted recently with atrial fib and did have a NORM wich demonstrted small clots . Cardioversion was not attempted. She did convert back to sinus with Amiodarone , however.) A myocardial perfusion scan was normal. Location: reports: central Chest Pain Radiation: reports: no radiation Quality of Pain: reports: pressure Severity in ED: mild Onset/Duration: 4-6 hours ago Context/Activities at Onset: reports: none Modifying Factors: improves with: nothing Associated Symptoms: reports: denies symptoms Nitro Today/Relief: no nitro taken today Aspirin Treatment Today: provided at home Similar Symptoms Previously?: No Recently Seen Here or By Another Healthcare Provider: No Review of Systems - Adult - REVIEW OF SYSTEMS - ADULT Constitutional: denies: chills, fever Cardiovascular: reports: chest pain. denies: irregular heart rate, orthopnea, syncope Respiratory: denies: cough, shortness of breath Gastrointestinal: denies: diarrhea, nausea, vomiting Past History - Adult - PAST MEDICAL HISTORY-ADULT Review of Records: reports: Old Records Reviewed, Nursing Assessment Review Major Childhood Illnesses: reports: denies history Cardiovascular: reports: A-Fib Respiratory: reports: denies history Gastrointestinal: reports: denies history Obstetrical/Gynecological: reports: denies history Genitourinary: reports: denies history Musculoskeletal: reports: denies history Neurological: reports: denies history Endocrine/Immune: reports: denies history Other Conditions: reports: denies history - IMMUNIZATION STATUS Childhood Immunizations: See Nurse Assessment Flu Vaccine: See Nurse Assessment - FAMILY HISTORY Family History: reviewed, not pertinent Physical Exam-General - PHYSICAL EXAM-ADULT Initial Vital Signs Reviewed: Yes - CONSTITUTIONAL General Appearance: alert, no apparent distress - EYES Eyes: PERRL/EOMI, pink conjunctivae - HEAD, EARS, NOSE, MOUTH & THROAT HENMT: normocephalic/atraumatic, moist mucous membranes, normal ENT inspection - NECK Neck: supple, normal inspection - RESPIRATORY Respiratory: chest non-tender, lungs clear, normal breath sounds - CARDIOVASCULAR Cardiovascular: normal peripheral pulses, regular rate, rhythm, no edema - GASTROINTESTINAL (ABDOMEN) Abdominal Exam: normal bowel sounds, non tender, soft - LYMPHATIC Lymphatic: no adenopathy - MUSCULOSKELETAL Back Exam: normal inspection, no CVA tenderness, no vertebral tenderness Extremity: normal range of motion, non-tender - SKIN Integumentary: normal color, normal turgor, warm/dry - NEUROLOGIC Neurologic: grossly normal, no motor/sensory deficits - PSYCHIATRIC Psych/Mental Status: normal mood/affect, normal thought content, normal thought process, oriented x 3 Progress - PLAN OF CARE/RESULTS Progress/Plan/Lab Results: Vital Signs - 8 hr 12/23/16 01:28 12/23/16 01:42 12/23/16 01:56 Temperature 98.1 F Pulse Rate 63 66 56 L Respiratory Rate 15 15 14 Blood Pressure 170/97 98/80 127/58 O2 Sat by Pulse Oximetry 100 100 100 12/23/16 02:17 12/23/16 02:35 Temperature Pulse Rate 58 L 69 Respiratory Rate 14 19 Blood Pressure 136/59 149/80 O2 Sat by Pulse Oximetry 96 100 Laboratory Results - last 24 hr 12/23/16 12/23/16 12/23/16 01:38 01:38 01:38 WBC 9.38 RBC 4.32 Hgb 13.8 Hct 40.3 MCV 93.3 MCH 31.9 H MCHC 34.2 RDW Std Deviation 13.4 Plt Count 222 MPV 9.2 Immature Gran % (Auto) 0.0 Neut % (Auto) 81.6 H Lymph % (Auto) 9.9 L [place] % (Auto) 7.2 Eos % (Auto) 0.9 Baso % (Auto) 0.4 Immature Gran # (Auto) 0.00 Neut # (Auto) 7.65 H Lymph # (Auto) 0.93 L [place] # (Auto) 0.68 H Eos # (Auto) 0.08 Baso # (Auto) 0.04 PT INR PTT (Actin FS) D-Dimer 0.43 Sodium 138 Potassium 4.4 Chloride 100 Carbon Dioxide 27 Anion Gap 11 BUN 11 Creatinine 0.6 Estimated GFR/1.73 m2 > 60 BUN/Creatinine Ratio 18 Glucose 139 H Calculated Osmolality 277 Calcium 9.0 Magnesium 1.9 Total Bilirubin 0.40 AST 23 ALT 19 Alkaline Phosphatase 51 Creatine Kinase 89 Troponin T Akp-V-Abiruhkdkdf Pept Total Protein 6.8 Albumin 4.1 Globulin 2.7 Albumin/Globulin Ratio 1.5 12/23/16 12/23/16 12/23/16 01:38 01:38 01:38 WBC RBC Hgb Hct MCV MCH MCHC RDW Std Deviation Plt Count MPV Immature Gran % (Auto) Neut % (Auto) Lymph % (Auto) [place] % (Auto) Eos % (Auto) Baso % (Auto) Immature Gran # (Auto) Neut # (Auto) Lymph # (Auto) [place] # (Auto) Eos # (Auto) Baso # (Auto) PT 10.4 INR 0.99 PTT (Actin FS) 31.2 D-Dimer Sodium Potassium Chloride Carbon Dioxide Anion Gap BUN Creatinine Estimated GFR/1.73 m2 BUN/Creatinine Ratio Glucose Calculated Osmolality Calcium Magnesium Total Bilirubin AST ALT Alkaline Phosphatase Creatine Kinase Troponin T < 0.010 [id number] Pept 528 H Total Protein Albumin Globulin Albumin/Globulin Ratio Orders Category Date Time Status Cardiac Monitoring DIRECTED Care 12/23/16 01:34 Active Oxygen Therapy- ED Nursing DIRECTED Care 12/23/16 01:34 Active Saline Loc NOW Care 12/23/16 01:34 Active CHEST-PORTABLE [RAD] Stat Exams 12/23/16 01:44 Taken AMYLASE [CHEM] Stat Lab 12/23/16 02:46 Ordered CBC WITH ELECTRONIC DIFF [HEME] Stat Lab 12/23/16 01:38 Completed CK PROFILE [SP CHEM] Stat Lab 12/23/16 01:38 Completed COMPREHENSIVE METABOLIC PANEL [CHEM] Stat Lab 12/23/16 01:38 Completed D-DIMER [CHEM] Stat Lab 12/23/16 01:38 Completed LIPASE [CHEM] Stat Lab 12/23/16 02:46 Uncollected MAGNESIUM [CHEM] Stat Lab 12/23/16 01:38 Completed PRO B-NATRIURETIC PEPTIDE Stat Lab 12/23/16 01:38 Completed PROTIME WITH INR [COAG] Stat Lab 12/23/16 01:38 Completed PTT [COAG] Stat Lab 12/23/16 01:38 Completed TROPONIN T Stat Lab 12/23/16 01:38 Completed Aspirin Med 12/23/16 01:34 Discontinued 325 mg PO STAT STA Morphine Med 12/23/16 02:44 Discontinued 2 mg IV NOW ONE Morphine Med 12/23/16 01:46 Discontinued 4 mg IV NOW ONE Nitroglycerin Sl [Nitroglycerin] Med 12/23/16 01:42 Discontinued 0.4 mg .ROUTE .STK-MED ONE Nitroglycerin Sl [Nitroglycerin] Med 12/23/16 01:40 Active 0.4 mg SL Q5M PRN PRN Ondansetron [Zofran] Med 12/23/16 02:28 Discontinued 4 mg .ROUTE .STK-MED ONE Ondansetron [Zofran] Med 12/23/16 02:33 Discontinued 4 mg IV NOW ONE EKG [EKG] Stat Ther 12/23/16 01:27 Ordered Result Diagrams: 12/23/16 01:38 12/23/16 01:38 Departure - Departure Date of Disposition Decision: 12/23/16 Time of Disposition Decision: 02:56 DIAGNOSIS: Abdominal pain Qualifiers: Abdominal location: epigastric Qualified Code(s): R10.13 - Epigastric pain Disposition: ADMITTED INPATIENT 09 Certified Medical Emergency: Emergent Condition: Good - Critical Care Note This patient required my direct & personal management of CC.: No This chart was documented by the indicated scribe, (Soraya Byrd Scribe) and accurately reflects the services I performed and decisions made by me, Westley Funez MD, as attested by the provider's signature.
[2016-12-23] MEDS ORDERED: FLEXERIL PO PRN (05:08)
[2016-12-23] MEDS ORDERED: ZOFRAN IV PRN (05:08)
[2016-12-23] MEDS: NS 1,000 ML IV SCH (06:03)
[2016-12-23 06:05] LABS: INR 1.02; PROTIME 10.7 Seconds (9.2-11.7); PTT 31.8 Seconds (22.0-36.0)
[2016-12-23] MEDS: MORPHINE IV PRN (06:36)
--- NOTE | 2016-12-23 07:03 | EKG Report ---
Test Performed on : 12/23/2016 06:28:38 AM Test Reason : chest pain Blood Pressure : / mmHG Vent. Rate : 053 BPM Atrial Rate : 053 BPM P-R Int : 198 ms QRS Dur : 100 ms QT Int : 482 ms P-R-T Axes : 063 -45 014 degrees QTc Int : 452 ms Sinus bradycardia. Left axis deviation Incomplete right bundle branch block Septal infarct (cited on or before 14-OCT-2016) ST \T\ T wave abnormality, consider lateral ischemia Abnormal ECG When compared with ECG of 23-DEC-2016 02:52, (Unconfirmed) Nonspecific T wave abnormality, improved in Inferior leads Confirmed by Tuan SHARMA, MLucero Carrillo ([id number]) on 12/23/2016 1:10:30 PM
--- NOTE | 2016-12-23 07:08 | Diag Imaging Result Doc PS360 ---
EXAM: CHEST-PORTABLE HISTORY: cp TECHNIQUE: AP portable chest at 0145 COMMENT: The heart size and pulmonary vascularity are within normal limits. Considering differences in inspiration and technique there is been no significant change in the appearance of the lungs since 10/30/2016. There is a somewhat moth-eaten appearance of the head of the left humerus which has apparently changed since 10/13/2016. Further evaluation with dedicated radiographs is recommended. IMPRESSION: No evidence of acute cardiopulmonary disease. Questionable lytic change in the left humeral head. Electronically signed by Bart Swanson 12/23/2016 7:06 AM
--- NOTE | 2016-12-23 07:22 | Diag Imaging Result Doc PS360 ---
EXAM: ABDOMEN FLAT/UPRIGHT HISTORY: abd pain TECHNIQUE: AP flat and upright portable abdomen at 0430 COMMENT: There is stool throughout the colon. The stomach and small bowel are nondistended. There is no evidence organomegaly or mass. There are arterial calcifications particularly in the upper abdominal aorta. IMPRESSION: Constipation. Electronically signed by Bart Swanson 12/23/2016 7:19 AM
--- NOTE | 2016-12-23 07:29 | EKG Report ---
Test Performed on : 12/23/2016 01:33:17 AM Test Reason : cp Blood Pressure : / mmHG Vent. Rate : 062 BPM Atrial Rate : 062 BPM P-R Int : 180 ms QRS Dur : 090 ms QT Int : 436 ms P-R-T Axes : 089 -51 077 degrees QTc Int : 442 ms Normal sinus rhythm. Left axis deviation Septal infarct (cited on or before 14-OCT-2016) ST \T\ T wave abnormality, consider lateral ischemia Abnormal ECG When compared with ECG of 30-OCT-2016 18:37, premature supraventricular complexes. are no longer present Inverted T waves have replaced nonspecific T wave abnormality in Lateral leads Confirmed by Amarilis Dickerson MD ([id number]) on 12/23/2016 1:10:09 PM
--- NOTE | 2016-12-23 07:29 | EKG Report ---
Test Performed on : 12/23/2016 02:52:56 AM Test Reason : bradycardia Blood Pressure : / mmHG Vent. Rate : 049 BPM Atrial Rate : 049 BPM P-R Int : 192 ms QRS Dur : 096 ms QT Int : 492 ms P-R-T Axes : 076 -38 -44 degrees QTc Int : 444 ms Sinus bradycardia. Left axis deviation Incomplete right bundle branch block Septal infarct (cited on or before 14-OCT-2016) ST \T\ T wave abnormality, consider lateral ischemia Abnormal ECG When compared with ECG of 23-DEC-2016 01:33, (Unconfirmed) Nonspecific T wave abnormality, worse in Inferior leads Confirmed by Tuan SHARMA, MLucero Carrillo ([id number]) on 12/23/2016 1:10:14 PM
[2016-12-23] MEDS ORDERED: MILK OF MAGNESIA PO ONE (08:49)
[2016-12-23] MEDS ORDERED: ELIQUIS PO SCH (09:00)
[2016-12-23] MEDS: ZOVIRAX PO SCH ×2 (09:29→21:01)
[2016-12-23] MEDS: MIRALAX PO SCH ×2 (09:29→21:00)
[2016-12-23] MEDS: PATADAY 0.2% OPH SOLUTION OPH SCH (09:29)
[2016-12-23] MEDS: ASPIRIN EC PO SCH (09:30)
[2016-12-23] MEDS: CORDARONE PO SCH (09:30)
[2016-12-23] MEDS: DEXILANT PO SCH (09:30)
[2016-12-23] MEDS: LOPRESSOR PO SCH ×2 (09:30→21:00)
[2016-12-23] MEDS: COLACE PO SCH ×2 (09:30→21:00)
--- NOTE | 2016-12-23 13:03 | CONSULTATION ---
DATE OF CONSULTATION: 12/23/2016 HISTORY: Ms. Merry Loza is an 86-year-old lady who has a had pulmonary embolism, atrial fibrillation who had a left atrial appendage clot in the past and is on Eliquis. Was doing well. Had epigastric discomfort with radiation in a bandlike sensation to the right and the left hypochondrium. She did not complain of any retrosternal chest discomfort. This was associated with shortness of breath. There is no palpitations. There is no syncope. The patient was brought to the emergency room. From a cardiac standpoint, she does not perceive any palpitations. She does not have retrosternal chest discomfort. She is anticoagulated. Does not complain of any bleeding diathesis. REVIEW OF SYSTEMS: A-14 point review of system was done. Gastrointestinal: As above. Not associated with nausea or vomiting. Genitourinary: There is no dysuria or hematuria. Respiratory: There is no history of cough, expectoration, hemoptysis. There is no history of fevers or chills. Endocrine: Stable. PAST MEDICAL HISTORY: 1. Recent pulmonary embolism. 2. Atrial flutter/fibrillation. 3. Small distal pulmonary emboli. 4. Hyperlipidemia. 5. Scoliosis. 6. Gastroesophageal reflux disease. 7. History of gallstones in the past. 8. Status post transesophageal echocardiogram which revealed suggestion of thrombus in the past. 9. Stress test was normal earlier this year. SOCIAL HISTORY: She does not smoke. Does not drink. ALLERGIES: Allergic to codeine. MEDICATIONS: Her home medications include eye drops, docusate, acyclovir, Eliquis 5 mg p.o. b.i.d., metoprolol 12.5 mg p.o. b.i.d., amiodarone 200 mg a day, Dexilant, atorvastatin 80. PHYSICAL EXAMINATION: Vital Signs: Blood pressure was 121/45 Cardiovascular: Normal jugular venous pressure. There is no thyromegaly. No carotid bruit. First and second heart sounds were heard. There is no S3 gallop. Respiratory: Normal air entry. There is no crepitations and rhonchi. Abdomen: Soft. There is mild epigastric tenderness. There was no guarding or rigidity. Bowel sounds were heard. Central Nervous System: Alert and oriented, moving all 4 extremities. Extremities: Examination of extremities revealed mild pedal edema. HEENT: Atraumatic, normocephalic. Pupils were equal and reacting to light. ASSESSMENT AND PLAN: 1. Mr. Merry Loza is an 86-year-old, lady who has history of atrial fibrillation, is anticoagulated, has history of hypertension, gallstones in the past, also has had pulmonary embolism. From a cardiac standpoint, she is stable. She has had a pulmonary embolus and left atrial appendage thrombus. Would, for the present, continue with her current medications of Eliquis. 2. She is in sinus rhythm. She has had paroxysmal atrial fibrillation and she is on amiodarone. Would recommend continuing beta blockers and amiodarone. 3. As far as the symptoms are concerned, she, in the past, has had gallstones and has had epigastric discomfort and bandlike discomfort, which she came in to the hospital. Gastroenterology has been consulted. Symptoms likely related to gastrointestinal issues. From a cardiac standpoint, she is stable she has been ruled out for myocardial infarction by cardiac enzymes. Thank you for the consult. We will follow her. cc: Alvaro Castro MD
--- NOTE | 2016-12-23 13:32 | Diag Imaging Result Doc PS360 ---
US GB < RUQ (LIMITED) - 12/23/2016 INDICATION: epi gastric pain TECHNIQUE: COMPARISON: Chest CT 10/13/2016 FINDINGS: The gallbladder is very distended measuring 15 x 4.4 cm. There are numerous shadowing stones in the gallbladder. There is some gallbladder wall thickening and surrounding fluid. The patient is apparently not very tender here. The liver, pancreas, and right kidney are normal. Common bile duct measures 7 mm. Aorta, IVC, and main portal vein are patent. IMPRESSION: Distended gallbladder with wall thickening, surrounding fluid, and numerous stones. Concerning for acute cholecystitis. Electronically signed by Rao Benitez 12/23/2016 1:29 PM
[2016-12-23] MEDS: ZOSYN 3.375 GM/NS 3.375 GM/50 ML IVPB IV SCH ×2 (16:10→21:03)
[2016-12-23] MEDS: DULCOLAX PR PRN ×2 (16:10→17:31)
--- NOTE | 2016-12-23 17:19 | HISTORY AND PHYSICAL ---
PRIMARY CARE PROVIDER: Dr. Ida Nieto. CHIEF COMPLAINT: Abdominal pain/chest pain. HISTORY OF PRESENT ILLNESS: This is an 86-year-old female who was last admitted to our service on 10/31/2016 for chest pain and shortness of breath. She comes in today with complaint of abdominal pain that radiates to her midsternal and left chest area. Does not radiate into her neck, back or jaw. She has a past medical history of atrial flutter, pulmonary embolism, hyperlipidemia and cholelithiasis as well as chronic back pain. She states that the pain started last night at around 7 p.m. She had 1 episode of vomiting with nausea. She denied any shortness of breath. She did state that it radiated into her chest, was roughly 6/10. Stated it was a sharp, burning type pain. The patient appears to have had a abdominal ultrasound back in October that showed a mildly distended gallbladder with multiple mobile gallstones in the gallbladder. All laboratory data was grossly normal as tested in the emergency room. The patient denied any melena, fever, chills, headache, hemoptysis, weight change, hematochezia hematemesis, cough but did have nausea, vomiting, chest and abdominal pain. She will be admitted to CICU for further evaluation and treatment. PAST MEDICAL HISTORY: See HPI. PREVIOUS SURGICAL HISTORY: Left eye corneal transplant. SOCIAL HISTORY: No tobacco, alcohol or illicit drug use or abuse. FAMILY HISTORY: Brother with coronary artery disease who had a myocardial infarction at age 70. Sister with gallbladder disease. ALLERGIES: Codeine causing hives. HOME MEDICATIONS: 1. Lotemax 0.5% ophthalmic suspension 1 drop at bedtime. 2. Docusate sodium 100 mg p.o. b.i.d. 3. Acyclovir 400 mg p.o. b.i.d. 4. [place] 7.5 one 1 p.o. q.4-6 p.r.n. 5. Flexeril 5 mg p.o. p.r.n. 6. Eliquis 5 mg p.o. b.i.d. 7. Metoprolol 12.5 mg p.o. b.i.d. 8. Aspirin 81 mg p.o. q.a.m. 9. Amiodarone 200 mg 1 p.o. q.a.m. 10. [place] 0.2% ophthalmic solution 1 drop daily. 11. Dexilant 60 mg p.o. q.a.m. 12. Lipitor 80 mg p.o. at bedtime. REVIEW OF SYSTEMS: Fourteen point review of systems conducted with the patient. Pertinent positives listed above in the HPI. All other systems were reviewed and found to be negative. PHYSICAL EXAMINATION: VITAL SIGNS: Temp 98.1, pulse has been variable between 39 and 69, sinus rhythm and atrial fibrillation at times, respirations 14, blood pressure 134/53, oxygen saturation 98% on room air. GENERAL: Pleasant 86-year-old female lying in the ER stretcher in no acute distress. Answers all questions appropriately. Family at bedside. HEENT: Head is atraumatic, normocephalic. Pupils equal, round, reactive to light. Extraocular eye movement intact. Sclerae are anicteric. Conjunctivae are pink. Oral mucosa is moist. NECK: Supple. Trachea is midline. No carotid bruit. CARDIAC: S1-S2 appreciated. No murmurs, gallops, rubs. LUNGS: Clear to auscultation bilaterally. No rhonchi, wheezes or rales. Symmetrical rise and fall with respirations. ABDOMEN: Soft, nondistended. Tender in the epigastric and right upper quadrant. No rebound tenderness, nonrigid. Bowel sounds present in all 4 quadrants, normoactive. No pulsatile mass or organomegaly. EXTREMITIES: No clubbing, cyanosis, or edema. SKIN: Warm, dry and intact. No acute lesions or rash. GENITOURINARY: No bladder distention. Patient voids. Otherwise deferred. DIAGNOSTIC DATA: Chest x-ray NAD. LABORATORY DATA: CBC within normal limits. Coags within normal limits. D-dimer 0.43. Chemistry panel within normal limits other than glucose of 139. CK 89, troponin less than 0.010, proBNP 528, amylase 40, lipase 48. ASSESSMENT AND PLAN: 1. Chest pain, rule out acute myocardial infarction. Patient recently had a NORM. There were mild clots noted. She was apparently in atrial fibrillation at that time and was started on amiodarone. She was not cardioverted but did convert back to sinus rhythm. She has had a myocardial perfusion scan on 10/31/2016 which showed normal myocardial perfusion and intact ejection fraction around 68%. We will trend cardiac enzymes. First set was negative. 2. Epigastric pain. Patient had an abdominal ultrasound in October which showed cholelithiasis. At that time she apparently was not symptomatic but it did note mobile stones in the gallbladder. The pain could be related to biliary colic. We will consult GI for further evaluation. 3. Paroxysmal atrial fibrillation. The patient was bradycardic at times in the emergency room as low as 39. As noted above, cardiac enzymes will be trended, repeat EKG in a.m. We will continue amiodarone at this time as well as anticoagulation with Eliquis. 4. Hyperlipidemia. Continue statins. 5. Nausea and vomiting. We will order Zofran. Further recommendations per patient clinical course history. Dictated by AVTAR Palumbo for Lj Jarvis MD cc: MD Gil Spring CRNP Lloyd James, MD
--- NOTE | 2016-12-23 20:56 | CONSULTATION ---
DATE OF CONSULTATION: 12/23/2016 HISTORY OF PRESENT ILLNESS: This is an 86-year-old female who approximately 24- 36 hours ago began experiencing some epigastric abdominal pain slightly radiating to her chance with some nausea. She was admitted for cardiac rule out and workup to [facility] where troponins have been negative and EKG shows no acute changes. She had an ultrasound that showed gallstones with some thickening and stranding concerning for cholecystitis. She denies prior to this any other changes in her health. Bowel functions have otherwise been normal. She has had a colonoscopy within the last couple of years with Dr. Valdivia reported it was normal. No jaundice. No fevers. Weight has been stable. She does have a recent history of pulmonary embolus several months ago related to an atrial thrombus in the setting of atrial fibrillation for which she is being treated with therapeutic anticoagulation with Eliquis and amiodarone for her rate control. REVIEW OF SYSTEMS: Ten point negative except for what is mentioned in her HPI. PAST MEDICAL HISTORY: 1. Atrial fibrillation resulting in pulmonary embolus. 2. Hyperlipidemia. 3. Chronic back pain. SURGICAL HISTORY: She had a corneal transplant but no abdominal operation. SOCIAL HISTORY: No tobacco, alcohol, or drugs. She has her daughter and granddaughter here with her today. FAMILY HISTORY: Significant for coronary disease and her granddaughter had her gallbladder taken out. MEDICATIONS: Per MAR, but significant for Eliquis which she takes twice daily. PHYSICAL EXAMINATION: Vital Signs: Temperature is 98.5, pulse 57, blood pressure 113/44, oxygen saturation 100% on room air. General: She is alert, in no acute distress. HEENT: There is no scleral icterus or cervical masses. Cardiovascular: Normal rate. Regular rhythm. Pulmonary: No increased work of breathing on room air. Abdomen: Soft. There is some mild epigastric tenderness to palpation. I do not see any scars. Integumentary: Otherwise warm, dry. There is no lower extremity edema. I do not see any jaundice on her integumentary examination. Neurologic: I do not see any gross focal deficits. LABS: White count is 9, hematocrit 40, platelets 222,000, INR is 1.02, creatinine 0.6, glucose 139, troponins are normal, BNP 528, amylase and lipase 40 and 48. Ultrasound of the right upper quadrant shows a distended gallbladder with wall thickening, surrounding fluid, numerous stones, concern for acute cholecystitis and cholelithiasis. ASSESSMENT AND PLAN: This is an 86-year-old female who presented with abdominal and chest discomfort, found to have cholecystitis and a negative cardiac evaluation thus far. She is anticoagulated for atrial flutter with pulmonary embolus and I have held this. I have discussed with the patient risks, benefits and alternatives to surgery. She consents to laparoscopic cholecystectomy. We discussed the possibility of bleeding especially in the setting of anticoagulation although it has been held, infection, bile leak, need for drain and common bile duct injury/re-injury to surrounding structures. She understands all this and consents. We also discussed possibility of conversion to open operation. I think she is a good candidate for either when it is required. In the meantime we will keep her NPO. She is on IV Zosyn and IV fluids. I have held her Eliquis and we will post her for tomorrow for laparoscopic cholecystectomy with cholangiogram and we will make further plans postoperatively regarding her future care. I discussed this plan with Dr. Tan. cc: Ck Garcia MD [facility]
[2016-12-23] MEDS: LIPITOR PO SCH (21:00)
[2016-12-23] MEDS: PATIENT'S OWN MED OPH SCH (21:05)
[2016-12-24] MEDS: NS 1,000 ML IV SCH ×2 (02:13→23:53)
[2016-12-24] MEDS: ZOSYN 3.375 GM/NS 3.375 GM/50 ML IVPB IV SCH ×2 (03:42→12:09)
[2016-12-24 06:07] LABS: MANUAL DIFF NEEDED? NO
[2016-12-24 06:15] LABS: BASO% 0.8 % (0.0-0.8); EOS# 0.07 X1000 (0.0-0.7); EOS% 1.1 % (0.0-10.0); HEMATOCRIT 40.1 % (37.0-47.0); HEMOGLOBIN 13.3 g/dL (12.0-16.0); LYMPH# 1.29 X1000 (1.2-3.4); LYMPH% 20.9 % (20.5-51.1); MCH 31.5 PG (27-31); MCHC 33.2 g/dL (33-37); MONO% 11.3 % (1.7-9.3); MPV 9.4 FL (7.4-10.4); NEUT% 65.9 % (42.2-75.2); PLT 228 X1000 (130-400); RBC 4.22 XMIL (4.2-5.4)
[2016-12-24 06:36] LABS: AGAP 12; BUN 8 mg/dL (8-22); CALCIUM 8.8 mg/dL (8.8-10.2); CHLORIDE 105 mmol/L (98-107); COSMO 282; POTASSIUM 4.1 mmol/L (3.5-5.1); SODIUM 142 mmol/L (136-145); TCO2 25 mmol/L (25-35)
[2016-12-24] MEDS: PATADAY 0.2% OPH SOLUTION OPH SCH ×2 (07:04→12:13)
[2016-12-24] MEDS ORDERED: SENSORCAINE 0.25%/EPI 1:200,000 ONE (07:47)
[2016-12-24] MEDS ORDERED: XYLOCAINE 1% ONE (07:48)
[2016-12-24] MEDS ORDERED: SODIUM CHLORIDE 0.9% ONE (07:48)
[2016-12-24] MEDS ORDERED: LR 1,000 ML ONE (07:48)
[2016-12-24] MEDS ORDERED: DIPRIVAN 1% ONE (08:26)
[2016-12-24] MEDS ORDERED: QUELICIN (DOSE) ONE (08:29)
[2016-12-24] MEDS ORDERED: XYLOCAINE-MPF 2% ONE (08:29)
[2016-12-24] MEDS ORDERED: ZOFRAN ONE (08:36)
[2016-12-24] MEDS ORDERED: ZEMURON ONE (08:50)
[2016-12-24] MEDS ORDERED: FENTANYL ONE (08:58)
[2016-12-24] MEDS ORDERED: APRESOLINE ONE (09:13)
[2016-12-24] MEDS: DECADRON ONE ×2 (10:04→14:02)
[2016-12-24] MEDS: ZOFRAN ONE ×2 (10:05→14:02)
[2016-12-24] MEDS: OFIRMEV 1000 MG/ISOTONIC SOLN 1,000 MG/100 ML BOTTLE ONE ×2 (10:07→14:02)
[2016-12-24] MEDS: DILAUDID ONE ×10 (10:10→14:03)
--- NOTE | 2016-12-24 11:27 | PROGRESS NOTE ---
DATE: 12/24/2016 SUBJECTIVE: She is scheduled for surgery this morning and had a pretty good night. OBJECTIVE: Vital signs: Temperature 98.7 degrees, pulse 56, respirations 18, blood pressure 123/50. Neck: CVP less than 6 cm. Lungs: Clear in all lung guevara. Cardiovascular: Regular rhythm and rate, without murmur or S3. Abdomen: Soft. She has tenderness still in the epigastrium, right upper quadrant. URINE OUTPUT: 2600 mL. LABORATORY: White count 6170, hematocrit 40, platelet count 228,000. Sodium 142, potassium 4.1, chloride 105, bicarbonate 25, BUN 8, creatinine 0.7. TSH was 10.47, so I will check a T4 and TSH. Troponin and CPK unremarkable. ASSESSMENT AND PLAN: 1. She presented with abdominal and chest discomfort, found to have cholecystitis. Negative cardiac evaluation. She is on Eliquis anticoagulation for atrial flutter, so I have held her Eliquis. Plan for surgery this morning, laparoscopic cholecystectomy. 2. Paroxysmal atrial fibrillation. I am going to put her back on her Eliquis when she gets through the surgery. 3. Hyperlipidemia. REVIEW OF ORDERS: She is on Zosyn. No changes at this time. cc: Bartolome Tan MD
[2016-12-24] MEDS: MORPHINE IV PRN ×4 (12:00→23:53)
[2016-12-24] MEDS: COLACE PO SCH ×2 (12:06→20:36)
[2016-12-24] MEDS: ASPIRIN EC PO SCH ×4 (12:07→17:56)
[2016-12-24] MEDS: CORDARONE PO SCH (12:07)
[2016-12-24] MEDS: DEXILANT PO SCH (12:08)
[2016-12-24] MEDS: LOPRESSOR PO SCH ×2 (12:10→20:36)
[2016-12-24] MEDS: MIRALAX PO SCH ×2 (12:12→20:36)
[2016-12-24] MEDS: ZOVIRAX PO SCH ×2 (12:26→20:51)
--- NOTE | 2016-12-24 12:27 | PROGRESS NOTE ---
DATE: 12/24/2016 SUBJECTIVE: Ms. Loza reports she is doing reasonably well. She is having some abdominal pain as she is just now back in the room status post laparoscopic cholecystectomy. She has not had any heart racing. PHYSICAL EXAMINATION: She is afebrile. Her heart rate is in the 60s to 70s. Blood pressure 106/41. Generally: No acute distress. Cardiovascular: She is in a regular rate and rhythm. Her telemetry shows she is in sinus. She has no lower extremity edema. Chest: Exam is relatively clear. No increased work of breathing. Abdomen: Soft, mild diffuse tenderness. No rebound or guarding. No organomegaly. PERTINENT DATA: White count 6.1, hematocrit 40, platelet count 228,000. Sodium 142, potassium 4.1, BUN is 8, creatinine 0.7. ASSESSMENT: 1. Atrial fibrillation. 2. Cholecystitis status post cholecystectomy. PLAN: I have no further recommendations other than resumption of the Eliquis once safe from a perioperative standpoint. Please contact us if we can be of further assistance in this patient. cc: Junior Vargas MD
[2016-12-24] MEDS ORDERED: BENADRYL IV PRN (12:32)
--- NOTE | 2016-12-24 15:26 | OPERATIVE NOTE ---
PROCEDURE DATE: 12/24/2016 PREOPERATIVE DIAGNOSIS: Acute cholecystitis with cholelithiasis. POSTOPERATIVE DIAGNOSIS: Acute cholecystitis with cholelithiasis. PROCEDURE PERFORMED: Laparoscopic cholecystectomy. ESTIMATED BLOOD LOSS: 30 mL. SPECIMENS: Gallbladder. ANESTHESIA: General. DRAINS: Facundo drain left in the gallbladder fossa. INDICATIONS: An 86-year-old female who presented with epigastric pain radiating into her chest, quite severe. She did have some milder episodes over the last several months. She is admitted for cardiac workup and this was negative. Ultrasound showed a dilated thickened gallbladder with stranding and stones consistent with cholecystitis. A cholecystectomy is indicated operative. The patient was on Eliquis. As such, we waited 24 hours and held her anticoagulation prior to this. OPERATIVE FINDINGS: There is a very hemorrhagic, friable, distended, thick- walled gallbladder with otherwise normal biliary anatomy. OPERATIVE NOTE: Risks, benefits, alternatives were discussed with the patient. She consented to the procedure. She was seen preoperatively and surgery to be performed was confirmed. She was taken to the operating room and placed in supine position. General anesthesia induced without complication. All bony prominences were padded and placed in neutral position. Scheduled antibiotics were confirmed. Her abdomen was prepped. Chlorhexidine solution draped in usual fashion. After time-out was performed, a curvilinear infraumbilical incision was made after periumbilical block was made, dissection was carried down to the level of the fascia. The fascia was elevated and incised along the midline and was entered in an open controlled fashion and a 12 mm Rosendo trocar was placed under direct visualization with care to protect the underlying structures insufflated slowly to 15 mmHg. She tolerated this well. We placed 3 trocars; one in the epigastrium and one in the midclavicular line off the costal margin and 1 more laterally. We grasped the gallbladder and retracted it cephalad. Starting laterally and progressing medially, we stripped down the peritoneum. It was very hemorrhagic and oozed and bled with just touching the gallbladder likely with some residual affects of her Eliquis despite being held for 24 hours. But we were able to dissect down the thickened peritoneum and an enlarged Calot' s node exposing the cystic artery. That was posterior to this and we doubly clipped and divided it. We continued our dissection on lower third of the gallbladder this from the liver bed exposing the critical view of safety. The infundibulum is quite dilated but we were able to dissect this down to more normal caliber cystic duct. There is some small feeding arteries that went to the duct that did bleed and one of them required a clip here, but we were able to confirm our anatomy with liver visualized through this triangle made. No other tubular structures. We placed a clip on the gallbladder side and triply clipped the cystic duct and divided this. Given the short nature and inflamed hemorrhagic nature and her normal LFTs, we omitted the cholangiogram as we were able to adequately confirming her anatomy. Then, we removed the gallbladder from the gallbladder fossa without rupturing it. There was another more posteriorly oriented cystic artery that coursed directly in the gallbladder that we doubly clipped and divided. The liver bed was quite friable and hemorrhagic. There was a capsule tear made lateral to the gallbladder that we observed and held pressure and it stopped. We irrigated the abdomen copiously until clear. Inspected the cystic duct. Stump is well closed. No bile leakage, and there is no bleeding from the cystic artery or the gallbladder fossa but, given her anticoagulated state, we placed Surgicel in the gallbladder fossa and also on this capsule tear in the liver laterally and watched this for several minutes with the pressure at 5 mm and hemostasis was noted at all locations. We placed a Facundo drain in the gallbladder fossa and brought it out through a lateral port site and secured it with a nylon suture. Deflated the abdomen. Brought the gallbladder out through the umbilical incision after placing in the EndoCatch bag after it was removed. We did have to make the fascial incision slightly larger to allow admittance of this large dilated gallbladder. We closed the fascia with interrupted 0 Vicryl sutures. Irrigated the superficial wound. Skin was closed with running 4-0 Monocryl in a subcuticular fashion. Dermabond was applied. She tolerated the procedure well and was awakened and transferred to PACU Counts were correct x2. I talked to the family. cc: Ck Garcia MD [facility]
--- NOTE | 2016-12-24 16:13 | CONSULTATION ---
DATE OF CONSULTATION: 12/23/2016 REASON FOR CONSULTATION: Abdominal pain. HISTORY OF PRESENT ILLNESS: This 86-year-old lady whom I have known as a patient before came in with chest pain and shortness of breath. She was eating some fried rabbit meat, cornbread and several other things and she certainly had severe epigastric pain with radiation to the back associated with nausea and vomiting. She had an ultrasound in the past with gallstones. She does not have any history of gastroesophageal reflux or ulcer in the past. PAST MEDICAL HISTORY: 1. Atrial flutter. 2. Pulmonary embolism. 3. Hyperlipidemia. 4. Cholelithiasis. 5. Chronic back pain. PREVIOUS SURGICAL HISTORY: Of left corneal transplant. SOCIAL HISTORY: Does not smoke, drink or use any drugs. FAMILY HISTORY: Positive for coronary artery disease. Brother with [place] at 70. Sister has gallbladder problems. ALLERGIES: Codeine, cold medicine. MEDICATION: Acyclovir 400 p.o. b.i.d., [place] 7.5 one q 4-6 hours. Flexeril 5 mg p.r.n. Eliquis 5 mg p.o. b.i.d. Metoprolol 12.5 p.o. b.i.d. Aspirin 81 in the morning. Amiodarone 200 one p.o. q.a.m. Dexilant 60 p.o. a.m. Lipitor 80 p.o. at bedtime. REVIEW OF SYSTEMS: Fourteen point review of system is negative other than HPI. PHYSICAL EXAMINATION: Revealed this pleasant lady. At the time of examination does not seem to be in any acute distress. She is afebrile. Pulse is varying between 50 and 70, atrial fibrillation. Respirations 14, blood pressure 140/60, O2 saturation 98%. General: No scleral icterus. No conjunctival pallor. Neck: Supple. Trachea in the midline. Heart: Irregular heart sounds. Lungs: Clear. Abdomen: I could feel gallbladder. She is tender. On deep palpation no rebound, guarding or rigidity. However no classical Cerda sign. Extremities: Was no cyanosis, clubbing. Neurological: Intact. LABORATORY DATA: CBC is normal. LFTs normal. Amylase and lipase normal. IMPRESSION AND PLAN: 1. Sudden episode of upper abdominal pain with a history of gallstones and I think I am feeling some tenderness in the right upper quadrant and but no typical Cerda sign. I will still rule out acute cholecystitis. 2. Gastroesophageal reflux. 3. Paroxysmal atrial fibrillation. 4. History of pulmonary embolism. 5. Hyperlipidemia. 6. Nausea and vomiting which is related to the #1. Meanwhile we have the ultrasound showed a grossly distended gallbladder 15 cm x 4.5 cm and some fluid around the gallbladder and thickening of the wall as well with multiple stones. Dr. Garcia who is production grip and she probably needs cholecystectomy and I will talk to him after he sees the patient. cc: Satnam Weir MD
--- NOTE | 2016-12-24 18:29 | PROGRESS NOTE ---
DATE: 12/24/2016 SUBJECTIVE: Patient resting in bed. She is status post cholecystectomy today with Dr. Seng Garcia. She is getting soreness in the abdomen postoperatively. She is requesting pain medication. She denies any fevers, rigors, chills at the moment. Vitals: Temperature 97 degrees, pulse rate of 64, respiratory rate 18, blood pressure 130/55, saturating 92% on room air. Body weight of 168 pounds 11.2 ounces, BMI 27.2 kg. General Appearance: Moderately nourished, lying in bed, and in mild distress with abdominal pain. HEENT: No pallor. No icterus. Neck: Supple. Abdomen: Drain noted in the right upper quadrant. Surgical dressing noted in the right upper quadrant. Bowel sounds are hypoactive. Appropriately tender in the abdominal area. Extremities: No cyanosis, clubbing. Neurologic: Alert, awake, oriented. LABS: Hemoglobin and hematocrit is 13.3 and 40.1, white count of 6.1, platelet count of 228,000, MCV of 95. Sodium 140, potassium 4.1, chloride 105, bicarb 25, anion gap 12. BUN of 8, creatinine 0.7, glucose 104, calcium 8.8. TSH 10.47. IMPRESSION AND PLAN: 1. Acute onset of right upper quadrant pain and diagnosed with calculus acute cholecystitis now status post laparoscopic cholecystectomy today on 12/24/[address] Seng Garcia. Patient is being followed by surgical team. 2. Reflux disease. We will start her on PPIs here. At home she takes Nexium. 3. Proximal atrial fibrillation. Eliquis has been held for the surgery and Dr. Junior Vargas is following. 4. History of PE. Eliquis is held for now. 5. Nausea, vomiting which was likely secondary to acute cholecystitis. I hope it will improve after the surgery. 6. Once she is able to start p.o. then we will start on bowel regimen as well. The above plan of care was discussed with the patient and family at bedside all questions answered. We will sign off. We will be available if needed. cc: MD Ck Daniels MD Allen J. Schmidt, MD
[2016-12-24] MEDS: LIPITOR PO SCH (20:36)
[2016-12-24] MEDS: PATIENT'S OWN MED OPH SCH (21:37)
[2016-12-25] MEDS: MORPHINE IV PRN ×6 (02:29→21:53)
[2016-12-25 05:43] LABS: FREE T4 1.09 ng/dL (0.93-1.70)
[2016-12-25] MEDS ORDERED: MILK OF MAGNESIA PO ONE (08:00)
[2016-12-25] MEDS ORDERED: DULCOLAX PR ONE (08:01)
--- NOTE | 2016-12-25 08:41 | PROGRESS NOTE ---
DATE: 12/25/2016 SUBJECTIVE: She had a good night. Still has not had a bowel movement. She is pretty sore and complains of a good deal of pain still. PHYSICAL EXAMINATION: General: Awake and alert, pleasant. Vital Signs: Temperature 98 degrees, pulse 65, respirations 18, blood pressure 112/70. Lungs: Clear in all lung guevara. Cardiovascular Examination: Regular rhythm and rate without murmur or S3. Abdomen: Soft. Is and Os: Urine output was 4 L. LAB: From yesterday, hematocrit stable at 40. Chemistries looked good. Sodium 142, potassium 4.1, chloride 105, BUN 8, creatinine 0.7. Rechecked her TSH and T4, and they were normal. ASSESSMENT AND PLAN: 1. Acute onset of right upper quadrant abdominal pain and bloating with calculus acute cholecystitis, status post laparoscopic cholecystectomy on 12/24/2016. Doing well. Drain is in place. 2. Gastroesophageal reflux, on Nexium. 3. Paroxysmal atrial fibrillation. We will hold the Eliquis for a couple of days. 4. Constipation. We continue the MiraLAX and Dulcolax. I will give her a little milk of magnesia today and she has Dulcolax suppositories as needed. cc: Bartolome Tan MD
[2016-12-25] MEDS: DEXILANT PO SCH (08:47)
[2016-12-25] MEDS: MIRALAX PO SCH ×2 (08:47→20:09)
[2016-12-25] MEDS: COLACE PO SCH ×2 (08:47→20:09)
[2016-12-25] MEDS: CORDARONE PO SCH (08:47)
[2016-12-25] MEDS: ZOVIRAX PO SCH ×2 (08:47→20:09)
[2016-12-25] MEDS: LOPRESSOR PO SCH ×2 (08:47→20:09)
[2016-12-25] MEDS: ASPIRIN EC PO SCH (08:49)
[2016-12-25] MEDS ORDERED: PRED FORTE 1% OPH SUSPENSION OPH SCH (09:00)
[2016-12-25] MEDS: NON-FORMULARY BULK MED OPH SCH ×3 (10:15→16:47)
--- NOTE | 2016-12-25 11:46 | PROGRESS NOTE ---
DATE: 12/25/2016 SUBJECTIVE: She feels well. She is a little sore but no vomiting. Bowel function normal. Drain is bothering her mostly. No fevers. No tachycardia. PHYSICAL EXAMINATION: Vital Signs: Blood pressure 136/55, oxygen saturation 96% on room air. General: She is alert, in no acute distress. Skin: Incision is clean, dry, intact. Mild ecchymosis at the umbilical incision. No hematoma. Is and Os: GOLDEN drain is serosanguineous. LABORATORY DATA: Reviewed her labs. Nothing new this morning. ASSESSMENT AND PLAN: An 86-year-old female status post laparoscopic cholecystectomy for cholecystitis and cholelithiasis. She is doing well. Monitor her today. If she is able tolerate a diet and her pain is controlled, we will plan for her to go home. Otherwise, we plan for tomorrow. cc: Ck Garcia MD
[2016-12-25] MEDS: DULCOLAX PR PRN (13:08)
[2016-12-25] MEDS: NS 1,000 ML IV SCH ×2 (15:11→18:05)
[2016-12-25] MEDS ORDERED: LACTULOSE PO ONE (15:40)
[2016-12-25] MEDS: LIPITOR PO SCH (20:08)
[2016-12-25] MEDS: PATIENT'S OWN MED OPH SCH (21:54)
--- NOTE | 2016-12-26 03:47 | PROGRESS NOTE ---
DATE: 12/23/2016 SUBJECTIVE: Ms. Loza was admitted early this morning. She states she came in with shortness of breath and, apparently, was here in the hospital back in the end of October. At that time, she was seen by Cardiology. She had recurrent atrial arrhythmias including atrial flutter and some atrial fibrillation and intermittent sinus rhythm. She had some chest discomfort. Suspected small distal pulmonary emboli on chest CT involving the left upper lobe and left lower lobe branches earlier in the month. She is on anticoagulation. She has a history of atherosclerotic carotid disease. At this time, it was mainly her breathing but then she had some abdominal pain on the left side which she is still having some pain but it is much less. Abdominal x-ray yesterday showed constipation, otherwise, unremarkable. There were some calcifications particularly in the upper aorta. EKG on presentation showed some sinus bradycardia, left axis deviation, incomplete right bundle branch block. Suspect old septal infarct with poor slow R-wave progression in anterior septal leads. She has a history of pulmonary fibrosis. ASSESSMENT AND PLAN: 1. Breathing is better. Apparently history of underlying pulmonary fibrosis. Air exchange and gas exchange appear to be good at this time. 2. Left-sided abdominal pain and abdominal x-ray shows constipation. 3. History of atrial fibrillation. She is on Cordarone 200 mg daily, Eliquis 5 mg b.i.d., metoprolol 12.5 mg b.i.d. She has also been put on acyclovir 400 mg p.o. b.i.d., I think that is for previous chronic herpetic infection. We will try to give her something to get her bowels to move today and let her eat a regular diet and get her up in a chair and see how we do. cc: Bartolome Tan MD
--- NOTE | 2016-12-26 03:47 | PROGRESS NOTE ---
DATE: 12/23/2016 ADDENDUM: Note the ultrasound shows distended gallbladder with wall thickening, surrounding fluid, numerous stones and requesting her she does have pain in the right quadrant epigastric so Dr. Dougherty see her but Dr. Garcia is to evaluate as well and is quite possible she has got acute cholecystitis right now. I am going to go ahead and start her on a little bit antibiotic and expectation she may get a cholecystectomy and will leave her NPO. Continue try work on her having a bowel movement. cc: Bartolome Tan MD
--- NOTE | 2016-12-26 03:48 | PROGRESS NOTE ---
DATE: 12/24/2016 SUBJECTIVE: She says she feels well. No nausea or vomiting. No further abdominal pains overnight. OBJECTIVE: No fevers. No tachycardia. Blood pressure 123/52. Oxygen saturation 96% on room air. General: She is alert. There is no scleral icterus. Cardiovascular: Normal rate, regular rhythm. Abdomen soft, nontender, nondistended. Segments otherwise warm and dry without jaundice. White count 6. Hematocrit is 40. Creatinine 0.7. ASSESSMENT AND PLAN: This is an 86-year-old female with symptomatic cholelithiasis likely cholecystitis. Cardiac workup has been negative. Risks, benefits, and alternatives including bleeding, infection, bile leak, damage to other bile structures including the common bile duct and conversion to open were all discussed with the patient, and she consents to laparoscopic cholecystectomy with cholangiogram and will proceed today. cc: Ck Garcia MD
[2016-12-26] MEDS: MORPHINE IV PRN (04:59)
[2016-12-26] MEDS: NORCO-7.5 PO PRN ×4 (08:39→20:54)
[2016-12-26] MEDS: ASPIRIN EC PO SCH (08:39)
[2016-12-26] MEDS: ZOVIRAX PO SCH ×2 (08:40→20:37)
[2016-12-26] MEDS: LOPRESSOR PO SCH ×2 (08:40→20:37)
[2016-12-26] MEDS: CORDARONE PO SCH (08:40)
[2016-12-26] MEDS: COLACE PO SCH ×2 (08:40→20:34)
[2016-12-26] MEDS: MIRALAX PO SCH ×2 (08:40→22:37)
[2016-12-26] MEDS: DEXILANT PO SCH (08:40)
--- NOTE | 2016-12-26 08:53 | PROGRESS NOTE ---
DATE: 12/26/2016 SUBJECTIVE: She has had a good deal of pain. She did have a bowel movement. She said it was liquid, but she told me that she does feel better. PHYSICAL EXAMINATION: Vital Signs: Temperature 98.4 degrees, pulse 65, respirations 18, blood pressure 133/52. Her O2 saturations are 97%. Lungs: Clear in all lung guevara. Cardiovascular: Regular rhythm and rate without murmur or S3. Abdomen: Soft. William-Mello drain with scant drainage. Skin: Warm and dry. LABORATORY DATA: Labs from 12/24/2016, unremarkable. ASSESSMENT AND PLAN: 1. Status post laparoscopic cholecystectomy for cholecystitis and cholelithiasis, doing well. She will probably get to go home today. Dr. Garcia will see if he wants to stop the drain yet. We will give her some Sassafras for pain. 2. Constipation. Good results yesterday. He will have her on some Sassafras. We will stop the morphine. Intravenous fluids going at 50 mL an hour. 3. Paroxysmal atrial fibrillation. We are going to hold the Eliquis and aspirin for a couple of days. 4. Gastroesophageal reflux, aware. cc: Bartolome Tan MD
--- NOTE | 2016-12-26 11:45 | PROGRESS NOTE ---
DATE: 12/26/2016 SUBJECTIVE: She feels okay. She is worried she is going to have pain but not really having much. Some discomfort at her drain site. No nausea or vomiting. She is tolerating a diet. She is ambulating and voiding without difficulty. PHYSICAL EXAMINATION: Vital Signs: No fevers. No tachycardia. Abdomen: Soft, appropriately tender. Nondistended. Incision is clean, dry, and intact. GOLDEN drain is serosanguineous. LABORATORY DATA: Reviewed her labs. Nothing new today. ASSESSMENT AND PLAN: This is an 86-year-old female status post laparoscopic cholecystectomy. She is overall doing okay. I think she is ready to go home. She is a little apprehensive. She is worried that she is going to have pain at home but we will switch her to [place] today and just see if this will give her longer pain relief. I think she is also having some gas type pains as well. The drain is bothering her and it is serosanguineous. I think we can remove that today prior to her going home. If she does not, I will do that later. Otherwise, I could remove the drain in the office in the next couple days. I have given her detailed instructions postoperatively, what to look out for, when to call, and what is expected. She understands. She has got a lot of family that is helping her but I think she will do well. She is just apprehensive to leave the hospital. cc: Ck Garcia MD
[2016-12-26] MEDS: NS 1,000 ML IV SCH ×2 (11:51→13:00)
[2016-12-26] MEDS: NON-FORMULARY BULK MED OPH SCH ×3 (11:51→17:36)
[2016-12-26] MEDS ORDERED: MYLICON DROPS PO ONE (16:07)
[2016-12-26] MEDS: DULCOLAX PR PRN (17:32)
[2016-12-26] MEDS: LIPITOR PO SCH (20:37)
[2016-12-26] MEDS: PATIENT'S OWN MED OPH SCH (22:38)
[2016-12-27] MEDS: NORCO-7.5 PO PRN ×2 (05:10→10:22)
[2016-12-27] MEDS: CORDARONE PO SCH (08:13)
[2016-12-27] MEDS: ASPIRIN EC PO SCH ×2 (08:13→08:16)
[2016-12-27] MEDS: COLACE PO SCH (08:13)
[2016-12-27] MEDS: DEXILANT PO SCH (08:13)
[2016-12-27] MEDS: MIRALAX PO SCH (08:14)
[2016-12-27] MEDS: ZOVIRAX PO SCH (08:14)
[2016-12-27] MEDS: LOPRESSOR PO SCH (08:14)
--- NOTE | 2016-12-27 09:20 | DISCHARGE SUMMARY ---
ADMISSION DATE: 12/23/2016 DISCHARGE DATE: 12/27/2016 HISTORY OF PRESENT ILLNESS: This is an 86-year-old female who was admitted to our service on 10/31/2016 for chest pain and shortness of breath. Came in complaining of abdominal pain. It radiated to the mid sternal and left chest area. Did not radiate to her neck, back, or jaw. Past medical history of atrial flutter, pulmonary embolism, hyperlipidemia, and cholelithiasis with chronic back pain. She states that the pain started the night before around 7 p.m. and had 1 episode of vomiting and nausea. Denied any shortness of breath. Did state that the pain radiated to her chest and went into her back. It was a 6/10 in severity. It started with sharp burning type of pain. Appears to have abdominal ultrasound back in October that showed mildly distended gallbladder, multiple mobile gallstones in the gallbladder. Laboratory data was grossly normal in the emergency room. She denied any melena, fever, chills, headache, hemoptysis, weight change, hematochezia, or hematemesis. She was admitted to [facility]. PAST MEDICAL HISTORY: Reviewed. She has had left eye corneal transplant. She has recently had a NORM and there were some mild clots. Had a history of acute myocardial infarction. HOSPITAL COURSE: Cardiology was consulted. A myocardial perfusion scan done in October showed an ejection fraction of around 68%. She had an abdominal x-ray done 12/23/2016 that showed constipation. She had abdominal ultrasound done on 12/23/2016 that showed distended gallbladder with thickened surrounding fluid and numerous stones concerning for cholecystitis. Dr. Garcia was consulted, general surgery. Dr. Castro was considered for cardiology. He felt from a cardiac standpoint, there was no sign of active cardiac ischemia. She remained in sinus rhythm. We held her Eliquis. Dr. Garcia evaluated and thought she had cholelithiasis and acute cholecystitis. He performed a laparoscopic cholecystectomy. Postoperative was uneventful. She had a good deal of soreness and a little bit of nausea. Advanced her diet. We will hold the Eliquis and aspirin for a couple of days. It was felt that she was ready go home on 12/27/2016. DISCHARGE MEDICATIONS: She will take her Zovirax 400 mg b.i.d., Cordarone 200 mg a day, aspirin 81 mg a day, Lipitor 80 mg a day, Dexilant 60 mg q.a.m., Colace 100 mg b.i.d. I gave her a few [place] to take p.r.n. pain 7.5, Lopressor 12.5 mg b.i.d., MiraLAX 17 g p.o. b.i.d. DISCHARGE INSTRUCTIONS: She will follow up with Dr. Garcia, follow up with her hardener helper, Dr. Castro, and follow up with Dr. Ida Niteo, primary care. cc: MD Dr. Jose Harper MD Marlin D. Gill, MD
[2016-12-27 12:29] VITALS: BP 119/55
--- NOTE | 2016-12-27 17:55 | PROGRESS NOTE ---
DATE: 12/27/2016 SUBJECTIVE: She feels lot better this morning. She is having bowel movements. She is tolerating her diet. Her pain is controlled. She says she is ready go home. OBJECTIVE: Vital signs: No tachycardia. She did have a low-grade, 100 degrees temperature which resolved spontaneously and she has no complaints this morning. Abdomen: GOLDEN drain serosanguineous. Incisions all look okay. Abdomen is appropriately tender. ASSESSMENT AND PLAN: This is an 86-year-old female status post laparoscopic cholecystectomy. Removed her drain today. She can see me back in the next week for follow up. She has a lot of help at home with multiple family members. I gave them detailed postoperative instructions. She will call with any questions. cc: Ck Garcia MD
--- NOTE | 2017-01-01 11:51 | PROGRESS NOTE ---
DATE: 01/01/2017 SUBJECTIVE: Patient actually had gallbladder surgery. Getting ready to go home today. Feeling better. Tolerating a little bit of soft diet. She had mild nausea and soreness at the surgical site. She is doing fairly well for her age. She is looking actually good and ready to go home. Family at bedside. OBJECTIVE: Vital Signs: Stable and afebrile. Heart: Normal. Lungs: Normal. Abdomen: Soreness in surgical area. Bowel sounds present. Extremities: Normal. Laboratory Data: No labs done today. IMPRESSION AND PLAN: 1. Biliary pain with acute and chronic cholecystitis, cholelithiasis, status post cholecystectomy. 2. History of coronary artery disease but she had an ejection fraction of 68 and cleared by cardiology. 3. History of chronic gastroesophageal reflux. Continue the current medications. 4. Corneal transplant, on Continue. 5. Hypertension. 6. Hyperlipidemia. 7. Constipation. 8. Patient has given all the medications to Dr. Tan, the attending to her discharge, and getting a package ready. We will see her as needed for her gastrointestinal problems. I have known her for many years but she seems to be doing well and came out of this quite well for her age. cc: Satnam Weir MD
== END 2016-12-27 13:30 | disposition home or self-care (01) ==
LOC: 3S 01:25 → ED 01:25 → SUATTDRO 04:24 → 3S 05:00 → SUATTDRO 12-26 13:12
PROVIDERS: ATTEND Internal Medicine